=== PATIENT | male | born 1935 | race Caucasian/White ===

== ENCOUNTER → 2016-05-20 | Outpatient (CLI) | payer OTHER ==
--- NOTE | 2016-05-20 12:41 | DX ---
Pelvis single view 1152 hours. History: Fell yesterday with pain left posterior pelvis. Findings: Comparison prior CT study of November 03, 2015. There is mild hip joint space narrowing bilaterally with small marginal osteophytes and mild protrusi o suspected. The SI joints and symphysis are normal. There are no fractures or abnormal lytic or scle rotic osseous lesions. Facet hypertrophy is noted at L4-L5. Patient has had left hemilaminectomy at t he L5 level. Soft tissues are unremarkable. Impression: 1. Mild hip joint space narrowing bilaterally with small osteophytes and mild protrusio probably from underlying mild osteoarthritis. A message was left on voice mail for Dr. Cristina Mills regarding this study.
== END ==
LOC: BMCIMAGING 11:50
PROVIDERS: ATTEND Nurse Practitioner Adult Health
DX: R10.2 Pelvic and perineal pain (principal)

== ENCOUNTER → 2017-09-25 | Outpatient (CLI) | payer OTHER | LOC: BMCIMAGING 14:40 | PROVIDERS: ATTEND Family Medicine | DX: S63.011D Subluxation of distal radioulnar joint of right wrist, subsequent encounter (principal) ==

== ENCOUNTER 2017-11-14 09:27 | Day surgery (SDC) | payer OTHER ==
[2017-11-14] MEDS ORDERED: fentaNYL 100 MCG/2 ML INJ IVP ONE (09:31)
[2017-11-14] MEDS ORDERED: MIDAZOLAM 2 MG/2 ML VIAL IVP ONE (09:31)
[2017-11-14] MEDS ORDERED: NS 500 ML IV ONE (09:31)
[2017-11-14] MEDS ORDERED: BENZOCAINE UNIT DOSE SPRAY HURRICAINE MM ONE (09:31)
--- NOTE | 2017-11-14 10:29 | PDHPUP ---
History & Physical Update H&P update statement: This history and physical update is based on an assessment of the patient which was completed after admission or registration (within 24 hours), but prior to the surgery/procedure. H&P update: H&P reviewed & patient examined, no change in patient's condition since H&P completed (Reviewed Dr. Ruiz's note from the office dated 10/25/2017 )
--- NOTE | 2017-11-14 10:48 | POSTANESTH ---
Post Anesthetic Evaluation Cardiovascular Status: Normal, Stable Respiratory Status: Normal, Stable Level of Consciousness/Mental Status: Can Participate in Eval, Alert and Oriented Pain Control: Adequate, Prn Tx Ordered Nausea/Vomiting Control: Adequate, Prn Tx Ordered Complications Possibly Related to Anesthesia: None Noted
[2017-11-14] MEDS ORDERED: PROPOFOL/EMULSION 500 MG/50 ML BOTTLE IV ONE (10:51)
[2017-11-14] MEDS ORDERED: LIDOCAINE 1% 5 ML SDV ONE (10:51)
--- NOTE | 2017-11-14 10:51 | PDANEPAE ---
ANE History of Present Illness 82 yo male with Afib being evaluated for Watchman placement. ANE Past Medical History - Cardiovascular History Hx Hypertension: No Hx Arrhythmias: Yes Hx Coronary Artery / Peripheral Vascular Disease: No Hx CHF / Valvular Disease: No Cardiovascular History Comment: sss, 2nd degree heart block, hx. pacemaker 2010. denies chest pain. A-fib - Pulmonary History Hx COPD: No Hx Asthma/Reactive Airway Disease: No Hx Recent Upper Respiratory Infection: No Hx Oxygen in Use at Home: No Hx Sleep Apnea: Yes Pulmonary History Comment: wears mouth appliance at night for minor sleep apnea. denies sob up 2 flights - Neurologic History Hx Cerebrovascular Accident: No Hx Seizures: No Hx Dementia: No Neurologic History Comment: tingling to feet, nerve related. l foot drop r/t lumbar impingment. lumbar herniated disc hx. migraines- 2/yr. - Endocrine History Hx Diabetes: No Hypothyroid: No Obesity: no - Renal History Hx Renal Disorders: No Renal History Comment: frequency- takes flomax - Liver History Hx Hepatic Disorders: No - Neurological & Psychiatric Hx Hx Neurological and Psychiatric Disorders: No - Cancer History Hx Cancer: No - Congenital Disorder History Hx Congenital Disorders: No - GI History GERD: moderate Hx Gastrointestinal Disorders: Yes Gastrointestinal History Comment: GERD - on meds - Other Health History Other Health History: fell on ice 04/2013- dislocated little finger. bruises easily. arthritis. - Chronic Pain History Chronic Pain: Yes (arthritis) - Surgical History Prior Surgeries: 03/2013- l knee arthroplasty. spondiolithiasis l4-5. l3-5 discectomy. rotator cuff surgery -l and r. tonsillectomy ANE Review of Systems Review of Systems: - Systems Constitutional: Reports: other (recent fatigue in past few months) ANE Patient History - Allergies Allergies/Adverse Reactions: codeine [Codeine] Allergy (Unknown, Verified 01/03/14 16:11) kidney problems hydrocodone Allergy (Verified 01/03/14 16:11) stroke symptoms oxycodone [Oxycodone] Allergy (Verified 01/03/14 16:11) stroke symptoms - Home Medications Home Medications: Lovastatin 10 mg PO HS 11/07/11 [Last Taken 11/13/17 20:00] [place]-3 Fatty Acids [Fish Oil 1000 mg (*)] 1,000 mg PO BID 11/07/11 [Last Taken 11/14/17 07:00] Diltiazem HCl [Diltiazem 24Hr Cd] 240 mg PO DAILY 02/26/13 [Last Taken 11/14/17 07:00] Dronedarone HCl [Multaq 400 mg (*)] 400 mg PO BIDMEAL 02/26/13 [Last Taken 11/14 07:00] Tamsulosin HCl [Flomax 0.4 MG (*)] 0.8 mg PO DAILY@1830 06/19/13 [Last Taken 07/02 20:00] Apixaban [Eliquis] 5 mg PO BID 11/03/15 [Last Taken 11/14/17 07:00] ISOMETHEPT/ACETAMINOP/DICHLPHN [MIDRIN CAPSULE] 1 each PO DAILY PRN 11/03/15 [ Last Taken 09/13/17 20:00] Naproxen Sodium [Aleve 220 MG (*)] 220 mg PO DAILY PRN 11/03/15 [Last Taken 20:00] Omeprazole 40 mg PO DAILY 11/03/15 [Last Taken 11/13/17 20:00] traMADol [Ultram 50 mg (*)] 50 mg PO DAILY PRN 11/03/15 [Last Taken 09/12/17 20: 00] - Anes Hx Anes Hx: no prior problems - Smoking Hx Smoking Status: Former smoker Marijuana use: No - Alcohol Use Alcohol Use: Occasionally (4/week) - Family Anes Hx Family Anes Hx: neg - N/A Family Hx Anesthesia Complications: none ANE Labs/Vital Signs - Vital Signs Vital Signs: reviewed preoperatively; see RN documention for details Height: 195.6 cm Weight: 88.6 kg ANE Physical Exam - Airway Neck exam: FROM Mallampati Score: Class 2 Mouth exam: normal dental/mouth exam - Pulmonary Pulmonary: clear to auscultation - Cardiovascular Cardiovascular: irregularly irregular - ASA Status ASA Status: III ANE Anesthesia Plan Anesthesia Plan: GA with mask Total IV Anesthesia: Yes
--- NOTE | 2017-11-15 15:46 | ECHO ---
[email or web address] [id number] Main: [phone] Fax: Transesophageal Echocardiography Name: CHUCK GARNICA MR#: [id number] Study Date: 11/14/2017 Study Time: 10:42 AM Date of : 1935 Age: 82 year(s) Height: ( ) Weight: ( ) BSA: Gender: Male Examination: VANDANA Indication: Watchman Image Quality: Contrast: Requested by: Lissa Alejandro Heart Rate: Rhythm: BP: / Procedure Staff Deployment Manager: Carlos Cosme RDCS Reading Physician: Lissa Alejandro MD Requesting Provider: Stiven Ruiz VANDANA Exam Details Conclusions: Normal global systolic LV function. There is a pacemaker lead noted in the right ventricle. No thrombus in left appendage. Mild mitral valve regurgitation is present. There is mild prolapse of the posterior leaflet of the mitral valve. Baseline VANDANA ISAÍAS Measurements. 0 Degrees 0.7mm x 14mm, 45 Degrees .9mm x 14mm, 90 Degrees 12mm x 14mm, 135 Degrees .9mm x 16mm. The patient has an elevated CHADS2 Vasc score of 3 and is a poor candidate for long-term anticoagulation therapy due to frequent nosebleeds and significant bruising. He will be referred for Watchman device evaluation in the [facility]. Measurements: Chambers Valvular Assessment AV/MV Valvular Assessment TV/PV Normal Normal Normal Name Value Range Name Value Range Name Value Range Additional Measurements: Findings: Left Ventricle: Normal global systolic LV function. Right Ventricle: There is a pacemaker lead noted in the right ventricle. Patient: CHUCK GARNICA Study Date: 11/14/2017 Page 1 of 2 10:42 AM Left Atrium: The left atrium is normal in size. Left Atrial Appendage: Good color flow doppler in the left atrial appendage. No thrombus in left appendage. Mitral Valve: Mild mitral valve regurgitation is present. There is mild prolapse of the posterior leaflet of the mitral valve. Aortic Valve: The aortic valve is normal in appearance and function. There is no aortic valve regurgitation. Pulmonic Valve: The pulmonic valve is normal in appearance and function. Aorta: The aorta is normal. Pericardium: No pericardial effusion. Exam Comments: Baseline VANDANA ISAÍAS Measurements. 0 Degrees 0.7mm x 14mm, 45 Degrees .9mm x 14mm, 90 Degrees 12mm x 14mm, 135 Degrees .9mm x 16mm. l1n (No Signature Object) Patient: CHUCK GARNICA Study Date: 11/14/2017 Page 2 of 2 10:42 AM [id number]
== END 2017-11-14 12:45 | disposition home or self-care (01) ==
LOC: FCATH 09:27
PROVIDERS: ATTEND Internal Medicine Cardiovascular Disease
DX: I48.0 Paroxysmal atrial fibrillation (principal)
CPT/HCPCS: J2704

== ENCOUNTER → 2017-11-20 | Outpatient (CLI) | payer OTHER | LOC: BHFA 15:00 | PROVIDERS: ATTEND Internal Medicine Cardiovascular Disease | DX: I48.91 Unspecified atrial fibrillation (principal); E78.5 Hyperlipidemia, unspecified; Z95.0 Presence of cardiac pacemaker ==

== ENCOUNTER 2018-01-18 14:31 | Emergency (ER) | payer OTHER ==
[2018-01-18] MEDS ORDERED: NS 500 ML IV ONE (14:57)
[2018-01-18 15:05] LABS: PLATELET COUNT 197 10^3/uL (150-400)
--- NOTE | 2018-01-18 15:14 | EDPHY ---
H & P Smoking Status: Former smoker Time Seen by Provider: 01/18/18 14:43 HPI/ROS: HPI Trip and fall. 82-year-old male by ambulance with his . This patient came out of coffee bar, misstepped on a curb trying to get into his car, tripped, fell forward striking the left side of his forehead and face. No loss of consciousness. He was taken off Eliquis by his geothermal plant manager about a week ago. He complains of a laceration to the left side of his face. He reports that he had a mechanical fall about a week and a half ago and has some residual left knee pain secondary to this. He denies any neck pain. No loss of sensation or weakness in his extremities. No other complaints. ROS: Constitutional: No fever, no chills. As above. Eyes: No discharge. No changes in vision. ENT: No sore throat. No nasal congestion or rhinorrhea. Respiratory: No cough. No shortness of breath. Cardiac: No chest pain, no palpitations. Gastrointestinal: No abdominal pain, no vomiting, no diarrhea. Genitourinary: No hematuria. No dysuria or increased frequency with urination. Musculoskeletal: No back pain. No neck pain. No myalgias or arthralgias. Skin: No rashes. As above. Neurological: No headache. No focal weakness or altered sensation. Past medical history: Pacemaker, bilateral total knee replacement, back surgeries, shoulder surgeries, atrial fibrillation, GERD, benign prostatic hypertrophy, hyperlipidemia. Left-sided footdrop, he states he thinks this is what causes him to fall as he drags his foot. His geothermal plant manager is Dr. Hao Bradford Social history: No alcohol. Here with his . Nonsmoker. He does not use a walker or cane. Physical Exam: General Appearance: Alert, he is not in distress. This patient is responding to questions appropriately and in full sentences. This patient appears well- hydrated and well-nourished. Head: Normocephalic atraumatic except for a linear 3 cm laceration, just lateral to the left brow ridge. He has a swelling with a subtle hematoma over the left maxilla. Face: Facial bones are stable on palpation. Eyes: Pupils equal and round and reactive to light, no pallor or injection. No lid erythema or edema. ENT, Mouth: Mucous membranes moist. Dentition is intact except for an [place]ete class 1 fracture to the left lower lateral incisor. No malocclusion of the jaw. No tongue lacerations or abrasions. Pharynx is clear. The bilateral nasal canals are clear. No septal hematoma. Respiratory: There are no retractions, lungs are clear to auscultation with good air movement bilaterally. Chest wall is stable to AP and lateral palpation. Cardiovascular: Regular rate and rhythm. No murmur. Gastrointestinal: Abdomen is soft and nontender, no masses, bowel sounds normal. Neurological: Motor sensory function is intact. Cranial nerves are normal. Cerebellar function intact. Skin: Warm and dry, no rashes. Facial laceration left lateral brow ridge as above. He has superficial abrasions about the size of a nickel over both knees anteriorly. Musculoskeletal: Neck is supple and nontender. The trachea is midline. No midline cervical, thoracic, lumbar or sacral tenderness on palpation. No flank tenderness on palpation. Extremities are symmetrical, full range of motion. All joints in the bilateral upper and bilateral lower extremities range without pain or impingement. No tenderness on palpation of the long bones in the bilateral upper and bilateral lower extremities. Psychiatric: No agitation. No depression. Database: EKG: EKG time is 3:41 p.m.; EKG shows a atrial paced rhythm ventricular rate of 70. T -wave inversion noted in lead 3. QT interval borderline prolonged. The OR, QRS , QT intervals are within normal limits. There are no ST-T wave changes indicative of ischemic or injury pattern. No evidence of right heart strain. Interpreted by me. Imaging: CT head without contrast: Negative except for a very small and subtle left posterior inferior wall orbital fracture nondisplaced. Results were discussed with staff radiologist Dr. Kimani Sykes. Procedures: Please see procedure note by physician fundraising assistant Evy Duarte. Emergency department course: Triage vital signs reviewed. He is mildly hypertensive. Vital signs otherwise normal. IV was placed. He was started on IV normal saline with 500 cc to be given over the next hour. EKG obtained and reviewed by myself. He will be sent for CT imaging of his head shortly. He consents to workup. 4:30 p.m., patient re-evaluated, resting comfortably at this time. Repeat neurologic Assessment is nonfocal and unchanged from prior. Results of his CT imaging, blood work and EKG discussed with him and his in detail. At this time he feels comfortable going home. We will get him up and see how he ambulates and feels on his feet. 4:55 p.m., patient re-evaluated. He was up and ambulatory around the emergency department without difficulty. At this time he feels comfortable going home. His feels comfortable taking him home. I have recommended using a cane to him. Wound care was discussed. Head injury precautions and follow-up reviewed. Return to emergency department precautions thoroughly discussed. All of his questions were answered. He was discharged in good condition with his . Differential Diagnosis: The differential diagnosis on this patient includes but is not limited to mechanical fall, facial laceration, dental injury. Cervical spine injury, traumatic brain injury, other significant traumatic injury unlikely. This represents a partial list of diagnoses considered. These considerations are based on history, physical exam, past history, reassessment and diagnostic testing. (Leigh Martinez) Constitutional: Initial Vital Signs Temperature (C) 36.5 C 01/18/18 14:36 Heart Rate 69 01/18/18 14:36 Respiratory Rate 18 01/18/18 14:36 Blood Pressure 146/70 H 01/18/18 14:36 O2 Sat (%) 94 01/18/18 14:36 O2 Delivery Mode Room Air Allergies/Adverse Reactions: codeine [Codeine] Allergy (Unknown, Verified 01/18/18 14:42) kidney problems hydrocodone Allergy (Verified 01/18/18 14:42) stroke symptoms oxycodone [Oxycodone] Allergy (Verified 01/18/18 14:42) stroke symptoms Home Medications: Medication Instructions Recorded Lovastatin 10 mg PO HS 11/07/11 [place]-3 Fatty Acids [Fish Oil 1000 1,000 mg PO BID 11/07/11 mg (*)] Diltiazem HCl [Diltiazem 24Hr Cd] 240 mg PO DAILY 02/26/13 Dronedarone HCl [Multaq 400 mg (*)] 400 mg PO BIDMEAL 02/26/13 Tamsulosin HCl [Flomax 0.4 MG (*)] 0.8 mg PO DAILY@1830 06/19/13 Apixaban [Eliquis] 5 mg PO BID 11/03/15 ISOMETHEPT/ACETAMINOP/DICHLPHN 1 each PO DAILY PRN 11/03/15 [MIDRIN CAPSULE] Naproxen Sodium [Aleve 220 MG (*)] 220 mg PO DAILY PRN 11/03/15 Omeprazole 40 mg PO DAILY 11/03/15 traMADol [Ultram 50 mg (*)] 50 mg PO DAILY PRN 11/03/15 Cholecalciferol Vit D3 [Vitamin D3 1,000 units PO DAILY #0 tab 11/04/15 (*)] Ibuprofen [Motrin (*)] 400 mg PO Q6 #0 tab 11/04/15 Medical Decision Making - Diagnostics Imaging Results: Imaging Impressions Head CT 01/18/18 14:58 Impression: 1. Stable moderate age-related atrophy. 2. No hemorrhage, mass effect, or definite acute peripheral infarct. 3. Stable mild nonspecific hypodensities in the white matter of bilateral cerebral hemispheres. Differential diagnosis includes microvascular ischemic disease, post-infectious/post-inflammatory sequela, atypical demyelinating disease, or migraine-related sequela. Small white matter lacunar infarcts may also have this appearance. 4. Nondisplaced minimal focal fracture inferior orbital wall on the left posterior laterally. If symptoms worsen, additional imaging may be necessary. Findings discussed with Leigh Martinez MD at 15:40 hour, 01/18/2018. Procedures: I was asked by Dr. Leigh Martinez to repair facial laceration. Laceration repair. Verbal consent was obtained from the patient. The 3 cm laceration on the left eyebrow was anesthetized using 1% lidocaine with epinephrine. The wound was irrigated with saline, draped and explored to its base with a gloved finger. There were no deep structures involved. The wound was repaired with 6 0 Prolene , 6 sutures. The wound repair was complex. The procedure was performed by myself. (Evy Mccloud) - Data Points Laboratory Results: Laboratory Results 01/18/18 14:40 01/18/18 14:40 01/18/18 01/18/18 01/18/18 14:40 14:40 14:40 WBC 6.86 10^3/uL 10^3/uL (3.80-9.50) RBC 3.71 10^6/uL L 10^6/uL (4.40-6.38) Hgb 12.3 g/dL L g/dL (13.7-17.5) Hct 37.8 % L % (40.0-51.0) MCV 101.9 fL H fL (81.5-99.8) MCH 33.2 pg pg (27.9-34.1) MCHC 32.5 g/dL g/dL (32.4-36.7) RDW 13.4 % % (11.5-15.2) Plt Count 197 10^3/uL 10^3/uL (150-400) MPV 9.5 fL fL (8.7-11.7) Neut % (Auto) 67.1 % % (39.3-74.2) Lymph % (Auto) 20.4 % % (15.0-45.0) Dane % (Auto) 8.9 % % (4.5-13.0) Eos % (Auto) 2.6 % % (0.6-7.6) Baso % (Auto) 0.4 % % (0.3-1.7) Nucleat RBC Rel Count 0.0 % % (0.0-0.2) Absolute Neuts (auto) 4.60 10^3/uL 10^3/uL (1.70-6.50) Absolute Lymphs (auto) 1.40 10^3/uL 10^3/uL (1.00-3.00) Absolute Monos (auto) 0.61 10^3/uL 10^3/uL (0.30-0.80) Absolute Eos (auto) 0.18 10^3/uL 10^3/uL (0.03-0.40) Absolute Basos (auto) 0.03 10^3/uL 10^3/uL (0.02-0.10) Absolute Nucleated RBC 0.00 10^3/uL 10^3/uL (0-0.01) Immature Gran % 0.6 % % (0.0-1.1) Immature Gran # 0.04 10^3/uL 10^3/uL (0.00-0.10) PT 13.0 SEC SEC (12.0-15.0) INR 0.96 (0.83-1.16) APTT 26.9 SEC SEC (23.0-38.0) Sodium 138 mEq/L mEq/L (135-145) Potassium 4.9 mEq/L mEq/L (3.3-5.0) Chloride 105 mEq/L mEq/L (97-110) Carbon Dioxide 25 mEq/l mEq/l (22-31) Anion Gap 8 mEq/L mEq/L (8-16) BUN 24 mg/dL H mg/dL (7-23) Creatinine 1.5 mg/dL H mg/dL (0.7-1.3) Estimated GFR 45 Glucose 99 mg/dL mg/dL (70-100) Calcium 8.9 mg/dL mg/dL (8.5-10.4) Medications Given: Discontinued Medications Sodium Chloride (Ns) 500 mls @ 0 mls/hr IV ONCE ONE; Wide Open PRN Reason: Protocol Stop: 01/18/18 14:58 Last Admin: 01/18/18 15:26 Dose: 500 mls Departure - Departure Disposition: [facility] Inpatient Acute Clinical Impression: Mechanical fall, Facial laceration, Chipped tooth Condition: Good Instructions: Acute Dental Trauma (ED), Facial Laceration (ED), Head Injury (ED ) Additional Instructions: Read and follow provided instructions. Sutures are to be removed in 5-7 days. This can be done here out in our triage area or by her primary care physician. Follow-up with your primary care physician in 2-3 days for re-evaluation. You should also follow up with your dentist as discussed for evaluation of your chipped tooth. Consider using a cane when up and walking to assist you. Take your medication as prescribed. Return to the emergency department for lightheadedness, worsening headache, confusion, nausea and vomiting or other serious concerns. Referrals: Patient,NotPresent [Unknown] - As per Instructions
[2018-01-18 15:15] LABS: INR 0.96 (0.83-1.16)
[2018-01-18 16:40] VITALS: BP 158/85
--- NOTE | 2018-01-18 21:14 | CPEKG ---
Test Reason : OPEN Blood Pressure : / mmHG Vent. Rate : 070 BPM Atrial Rate : 070 BPM P-R Int : 221 ms QRS Dur : 099 ms QT Int : 448 ms P-R-T Axes : 033 -10 -20 degrees QTc Int : 484 ms Atrial-paced rhythm Borderline T abnormalities, inferior leads Borderline prolonged QT interval Confirmed by Leigh Martinez ([id number] on 01/18/2018 9:13:37 PM Referred By: Confirmed By:Leigh Martinez
== END 2018-01-18 17:18 | disposition home or self-care (01) ==
LOC: EDUNIT#
PROC: 0HQ1XZZ Repair Face Skin, External Approach (ICD-10-PCS; principal; 2018-01-18)
DX: S01.81XA Laceration without foreign body of other part of head, initial encounter (principal); S02.32XA Fracture of orbital floor, left side, initial encounter for closed fracture; S02.5XXA Fracture of tooth (traumatic), initial encounter for closed fracture; E86.9 Volume depletion, unspecified; W01.0XXA Fall on same level from slipping, tripping and stumbling without subsequent striking against object, initial encounter; Y92.810 Car as the place of occurrence of the external cause; Y93.01 Activity, walking, marching and hiking; Y99.8 Other external cause status

== ENCOUNTER 2018-01-24 13:47 | Inpatient (IN) | payer OTHER ==
--- NOTE | 2018-01-24 14:46 | EDPHY ---
H & P Time Seen by Provider: 01/24/18 14:21 HPI/ROS: Chief complaint. Right leg gives out HPI. Patient is an 82-year-old male presents emergency department with 3 day history of intermittent right leg weakness and 1 bear weight. The right leg intermittently loses control and gives out. Today was walking from the car to the dentist office and his leg buckled. He can move and lift his leg and in between times he has no symptoms. Symptoms have been present for 3 days. He can sit down in a chair and in tender 15 min get up and walk without problem. He has no right arm symptoms. No left leg symptoms though he does have chronic left footdrop. He was seen 6 days ago after a fall and had inferior orbital fracture on head CT but no intracranial bleeding. He had been on Eliquis but is been off blood thinners for about 1 and half weeks. He does have some soreness in his right hip. He does not have low back pain. He has some upper neck pain that is chronic and has had no change in his symptoms. He has had some headache after fall. The patient is concerned about falling. ROS Constitutional. no fever/chills, no weakness Eyes. no problems with vision ENT. no sore throat, no nasal drainage Cardiovascular. no chest pain Respiratory. no shortness of breath, no cough Abdominal. no abdominal pain, no nausea/vomiting, no diarrhea . no problems urinating MS. Left leg cheryle and gives out; chronic left-sided neck pain Skin. no rash Lymph. no swollen glands Neuro. Headache and recent head injury Past Medical/Surgical History: Past medical history significant pacemaker, bilateral total knee replacements, back surgeries, eye surgery, atrial fibrillation, dyslipidemia, GERD Social History: , nonsmoker, no alcohol Smoking Status: Former smoker Physical Exam: General Appearance: Alert well-developed male mild distress vital signs are stable Eyes: Pupils equal and round no pallor or injection. ENT, Mouth: Mucous membranes are moist. Respiratory: There are no retractions, lungs are clear to auscultation. Cardiovascular: Regular rate and rhythm. Gastrointestinal: Abdomen is soft and nontender, no masses, bowel sounds normal. Neurological: Awake and alert, sensory and motor exams grossly normal. Cranial nerves are normal speech is normal. Examination of arms and legs is normal with good range of motion and sensation Skin: Warm and dry, no rashes. Bruising left cheek secondary to fall 6 days ago Musculoskeletal: Neck is supple nontender. Extremities symmetrical, full range of motion. Psychiatric: Patient is oriented X 3, there is no agitation. Constitutional: Initial Vital Signs Temperature (C) 36.4 C 01/24/18 13:53 Heart Rate 73 01/24/18 13:53 Respiratory Rate 16 01/24/18 13:53 Blood Pressure 102/57 L 01/24/18 13:53 O2 Sat (%) 95 01/24/18 13:53 Allergies/Adverse Reactions: codeine [Codeine] Allergy (Unknown, Verified 01/18/18 14:42) kidney problems hydrocodone Allergy (Verified 01/18/18 14:42) stroke symptoms oxycodone [Oxycodone] Allergy (Verified 01/18/18 14:42) stroke symptoms Home Medications: Medication Instructions Recorded Lovastatin 10 mg PO HS 11/07/11 [place]-3 Fatty Acids [Fish Oil 1000 1,000 mg PO BID 11/07/11 mg (*)] Diltiazem HCl [Diltiazem 24Hr Cd] 240 mg PO DAILY 02/26/13 Dronedarone HCl [Multaq 400 mg (*)] 400 mg PO BIDMEAL 02/26/13 Tamsulosin HCl [Flomax 0.4 MG (*)] 0.8 mg PO DAILY@1830 06/19/13 Apixaban [Eliquis] 5 mg PO BID 11/03/15 ISOMETHEPT/ACETAMINOP/DICHLPHN 1 each PO DAILY PRN 11/03/15 [MIDRIN CAPSULE] Naproxen Sodium [Aleve 220 MG (*)] 220 mg PO DAILY PRN 11/03/15 Omeprazole 40 mg PO DAILY 11/03/15 traMADol [Ultram 50 mg (*)] 50 mg PO DAILY PRN 11/03/15 Cholecalciferol Vit D3 [Vitamin D3 1,000 units PO DAILY #0 tab 11/04/15 (*)] Ibuprofen [Motrin (*)] 400 mg PO Q6 #0 tab 11/04/15 Medical Decision Making - Diagnostics EKG Interpretation: EKG interpreted by me shows an atrial paced rhythm. Normal interval. Left axis deviation with left anterior fascicular block. QRS otherwise normal. There is some T-wave inversion in inferior leads. Rate is 65. EKG not changed from 01/18/2018 Imaging Results: Imaging Impressions Head CT 01/24/18 14:47 Impression: A left subdural effusion is associated with 6.5 mm of [id number]-zk-[id number] shift. The study is otherwise stable without evidence for hemorrhage. Results called to Dr. Jose Carlos Sprague at 3:42 PM. General information for patients regarding this examination can be found at [email or web address]. If you have questions or comments about this report, please contact me at [phone] (hospital) or [phone] (cell). Hip X-Ray 01/24/18 14:47 Impression: Nothing acute or subacute identified. X-ray right hip interpreted by me is normal Noncontrast head CT shows a left subdural effusion previously 2 mm in size now 6.5 mm in size with midline shift Procedures: IV normal saline ED Course/Re-evaluation: Re-evaluated by me at 3:50 p.m. And patient is conversational and neurologically intact Patient and his and I discussed imaging study results, treatment plan including recommendation for admission. They expressed understanding and agreement I consulted and discussed the case with Dr. Supa cabello, hospitalist who agrees to the admission I consulted discussed the case with Dr. Reza for Neurosurgery who also agrees with admission will see the patient in consultation. He is fine with the patient being admitted to a medical surgery bed. Differential Diagnosis: Recent head trauma and recently discontinued on blood thinners. Repeat head CT now shows an enlarging subdural effusion with midline shift. I suspect that this explains the patient's intermittent leg weakness and it giving out. I considered hip fracture injury as well. Patient does not have any low back pain. He is currently neurologically intact - Data Points Laboratory Results: Laboratory Results 01/24/18 15:13 01/24/18 01/24/18 15:13 15:13 WBC 5.75 10^3/uL 10^3/uL (3.80-9.50) RBC 3.84 10^6/uL L 10^6/uL (4.40-6.38) Hgb 12.7 g/dL L g/dL (13.7-17.5) Hct 38.9 % L % (40.0-51.0) MCV 101.3 fL H fL (81.5-99.8) MCH 33.1 pg pg (27.9-34.1) MCHC 32.6 g/dL g/dL (32.4-36.7) RDW 13.1 % % (11.5-15.2) Plt Count 186 10^3/uL 10^3/uL (150-400) MPV 9.3 fL fL (8.7-11.7) Neut % (Auto) 69.4 % % (39.3-74.2) Lymph % (Auto) 18.1 % % (15.0-45.0) Gordon % (Auto) 9.4 % % (4.5-13.0) Eos % (Auto) 2.1 % % (0.6-7.6) Baso % (Auto) 0.5 % % (0.3-1.7) Nucleat RBC Rel Count 0.0 % % (0.0-0.2) Absolute Neuts (auto) 3.99 10^3/uL 10^3/uL (1.70-6.50) Absolute Lymphs (auto) 1.04 10^3/uL 10^3/uL (1.00-3.00) Absolute Monos (auto) 0.54 10^3/uL 10^3/uL (0.30-0.80) Absolute Eos (auto) 0.12 10^3/uL 10^3/uL (0.03-0.40) Absolute Basos (auto) 0.03 10^3/uL 10^3/uL (0.02-0.10) Absolute Nucleated RBC 0.00 10^3/uL 10^3/uL (0-0.01) Immature Gran % 0.5 % % (0.0-1.1) Immature Gran # 0.03 10^3/uL 10^3/uL (0.00-0.10) Sodium Pending Potassium Pending Chloride Pending Carbon Dioxide Pending Anion Gap Pending BUN Pending Creatinine Pending Estimated GFR Pending Glucose Pending Calcium Pending Departure - Departure Disposition: [facility] Inpatient Acute Clinical Impression: Subdural effusion Condition: Fair Referrals: Roland Jett MD [Primary Care Provider] - As per Instructions
--- NOTE | 2018-01-24 15:25 | CPEKG ---
Test Reason : OPEN Blood Pressure : / mmHG Vent. Rate : 065 BPM Atrial Rate : 065 BPM P-R Int : 168 ms QRS Dur : 095 ms QT Int : 460 ms P-R-T Axes : 017 -41 -16 degrees QTc Int : 479 ms Atrial-paced rhythm Left anterior fascicular block Borderline T abnormalities, inferior leads Borderline prolonged QT interval Confirmed by Jose Carlos Sprague ([id number]) on 01/24/2018 3:25:22 PM Referred By: Confirmed By:Jose Carlos Sprague
[2018-01-24 15:27] LABS: PLATELET COUNT 186 10^3/uL (150-400)
[2018-01-24 16:18] LABS: INR 1.02 (0.83-1.16); PROTIME(PATIENT) 13.6 SEC (12.0-15.0)
--- NOTE | 2018-01-24 17:07 | GCON ---
NEUROSURGICAL CONSULTATION CHIEF COMPLAINT: Right leg weakness. HISTORY OF PRESENT ILLNESS: The patient is an 82-year-old male with a past medical history significa nt for atrial fibrillation with a pacemaker for which he was on Eliquis. He had a fall approximately 6 days ago with a positive loss of consciousness. He was found to have an inferior orbital fracture , and a head CT was read as negative. His Eliquis was stopped, and he noticed for the past 3 days th at his right leg has been giving out on him. He has difficulty walking when he loses control of his right leg. He has had a headache since his fall approximately 6 days ago. He has not had any nausea or vomiting. He denies any new paresthesias. He does have a history of chronic back pain and had s urgery on his back years ago. He has a history of left dorsiflexor weakness from that surgery. PAST MEDICAL HISTORY: 1. Pacemaker. 2. Atrial fibrillation. 3. Hyperlipidemia. 4. GERD. PAST SURGICAL HISTORY: 1. Bilateral total knee replacements. 2. Previous back surgery. MEDICATIONS PRIOR TO ADMISSION: Midrin capsule, naproxen, omeprazole, Ultram, vitamin D3, and Motrin . The patient was on Eliquis, but this has currently been stopped. ALLERGIES: Codeine, hydrocodone, and oxycodone, which cause kidney problems and stroke symptoms. FAMILY HISTORY: The patient has no family history of intracranial hemorrhages. SOCIAL HISTORY: The patient is with grown children. He is a former smoker and denies recrea tional drug use. He does drink alcohol occasionally. REVIEW OF SYSTEMS: Negative. PHYSICAL EXAM: GENERAL: The patient is an 82-year-old male lying in bed, in no apparent distress. HEAD, EYES, EARS, NOSE, AND THROAT: Negative to drainage. He does have a laceration that was repair ed approximately 1 week ago lateral to his left eye. NEUROLOGICAL EXAM: The patient is awake, alert, and oriented x4. Pupils are equal, round, and react ted to light. Extraocular motions are intact. There is no evidence of facial droop. Tongue and uvu la are midline. Spinal access muscles are intact. His motor strength is 5/5 in his arms and legs wi th the exception of his left dorsiflexors, which are 4+/5. His sensation is grossly intact to light touch in his arms and legs. Deep tendon reflexes are 1+ out of 4 in bilateral biceps, triceps, brach ioradialis, patellar, and Achilles. There is a negative Celso with no clonus. DIAGNOSTIC STUDIES: A head CT without contrast from [facility] on 01/24/2018, shows diffuse cerebral atrophy. There is a left-sided subdural hygroma extending along the majority of the convexity that measures approximately 9 mm and produces approximately 6.5 mm of trwj-wu-aokrr shift. The patient did have a head CT on 01/18/2018, that showed diffuse cerebral atrophy and a small left -sided subdural hygroma. There was possibly a trace amount of extra-axial blood in the left anterior middle fossa. There was no evidence of hydrocephalus. This questionable amount of blood is very sm all and difficult to visualize, and seen mostly in retrospect. IMPRESSION: This is an 82-year-old male with a several-day history of right leg giving out that may be related to his left-sided subdural hygroma. He is neurologically stable. PLAN: All the above were discussed in detail with the patient. This patient was seen and examined w chely Luna present in the emergency department, room #5, at 4:40 p.m. In light of his jeanie rly rapid enlargement of the subdural hygroma over the last several days, we suggest that he be admit mamie to the hospital for observation. We will have him work with Physical Therapy and Occupational Th erapy. We would recommend a repeat head CT without contrast on the morning of 01/26/2018. I f his subdural hygroma stays the same and he clinically improves, then we can follow him on a conserv ative basis. If the subdural hygroma enlarges or he has any worsening symptoms, then he may require drainage of this left-sided subdural hygroma. At this point in time, he does not require any antiepi leptic medications. Admission to the floor is fine with q.4 h. neuro checks. Please call with any n eurological changes. /[id number]/MODL
[2018-01-24] MEDS ORDERED: oxyCODONE IR 5 MG TAB PO PRN (19:01)
[2018-01-24] MEDS ORDERED: ONDANSETRON DISINTEGRATING 4 MG TAB PO PRN (19:01)
[2018-01-24] MEDS ORDERED: PROMETHAZINE HCL 25 MG/ML INJ IVP PRN (19:01)
[2018-01-24] MEDS ORDERED: HYDROCODONE/APAP 5/325 TAB PO PRN (19:01)
[2018-01-24] MEDS ORDERED: ONDANSETRON 4 MG/2 ML VIAL IVP PRN (19:01)
[2018-01-24] MEDS ORDERED: ACETAMINOPHEN 325 MG TAB PO PRN (19:01)
[2018-01-24] MEDS ORDERED: ISOMETHEPT PO PRN (19:04)
[2018-01-24] MEDS ORDERED: DICHLPHN PO PRN (19:04)
[2018-01-24] MEDS ORDERED: ACETAMINOP PO PRN (19:04)
--- NOTE | 2018-01-24 19:42 | GHP ---
DATE OF ADMISSION: 01/24/2018 CHIEF COMPLAINT: Difficulty walking. HISTORY: This is an 82-year-old man with a fairly limited past medical history other than paroxysmal AFib, history of permanent pacemaker, and a fall approximately 6 days ago, at which time he hit his head and suffered an orbital rim fracture. At that time, patient had recently been discontinued on b lood thinners and head CT was performed which was remarkable only for a small subdural effusion. The patient went home and per his , she notes that for several days he was very somnolent and slept much of the day. More recently, he has been more alert and interactive, but has had issues where int ermittently he will be walking and his right leg will just buckle on him without any warning and he w ill be unable to bear weight. He notes this has been happening for the last several days intermitten tly throughout the day. In between episodes, he will be able to walk fine. He denies any numbness o r weakness elsewhere. He denies any changes in his vision or hearing. He denies any confusion. He continues to remain off Eliquis which he has been off for about the last 10 days. He has had some mi ld headaches, but nothing severe. PAST MEDICAL HISTORY: Includes: 1. Nonobstructive coronary artery disease. 2. Paroxysmal AFib. 3. Hyperlipidemia. 4. BPH. 5. GERD. PAST SURGICAL HISTORY: Includes: 1. Bilateral rotator cuff repairs. 2. Bilateral total knees. 3. Back surgery. 4. Permanent pacemaker. 5. Eye surgery. FAMILY HISTORY: Parents are . 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 He is . He is a nonsmoker, nondri nker, nondrug user. REVIEW OF SYSTEMS: 10-point review of systems obtained and negative except as per HPI. HOME MEDICATIONS: Include: 1. Tamsulosin. 2. Omeprazole. 3. [place]-3 fatty acids. 4. Naproxen. 5. Lovastatin. 6. Midrin. 7. Dronedarone. ALLERGIES: Include codeine, hydrocodone, oxycodone. PHYSICAL EXAM: VITAL SIGNS: BP 150/75, heart rate 63, respiratory rate 19, O2 sats 96% on room air, temperature is 36.7. GENERAL APPEARANCE: Well-developed, well-nourished, elderly man. He is awake and alert. He is in no acute distress. EYES: Anicteric. There are sutures and bruising around th e left eye. HENT: Oropharynx clear. CARDIOVASCULAR: Regular rate and rhythm. No MRG. PULMONARY: CTA bilaterally. Normal work of breathing. ABDOMEN: Soft, nontender, nondistended. EXTREMITIES: No clubbing, cyanosis, or edema. SKIN: Warm, dry, well perfused. NEURO/PSYCH: Oriented, appropr iate, pleasant. CLINICAL DATA: Head CT, personally reviewed and interpreted, shows an increased subdural effusion co mpared to CT from 1 week ago subdural effusion. Now it is associated with 6.5 mm of lpqb-ry-duthr sh ift. There is no evidence of hemorrhage. EKG, personally reviewed and interpreted, shows A-paced rhythm. There is left anterior fascicular bl ock. ASSESSMENT/PLAN: This is an 82-year-old man status post a fall 6 days ago, presenting with an increa sed subdural effusion consistent with a subdural hygroma per Neurosurgery. 1. Subdural hygroma. Given the increase in size and now mild shift, the plan is to monitor patient for probably 1-2 days in the ICU. A repeat CT scan will be obtained in [address]sens or patient has any worsening symptoms, he may require drainage of this hygroma, but at this time plan is for monitoring. 2. Right leg instability. Unclear if this is completely related to problem above. His symptoms are intermittent and in between he seems to have full strength. PT/OT will be involved and again monito ring as per above. 3. Paroxysmal atrial fibrillation. Currently appears to be in an A-paced rhythm. He is off anticoa gulation. We will continue his diltiazem and Multaq but continue to hold Eliquis. 4. Hypertension. The patient's blood pressure has been somewhat labile since arrival, as low as 102 to as high as 155 systolic. We will continue to monitor. 5. BPH. Will continue Flomax. 6. Hyperlipidemia. We will continue lovastatin. 7. Inpatient status. The patient will require greater than 48-hour stay for evaluation and manageme nt of above. 8. Patient is new to my care. Old records reviewed, summarized as per HPI and past medical history. Care plan reviewed with Dr. Luna, as well as Dr. Sprague in the emergency department. Greater than 35 minutes of critical care time were spent in care of this patient, including evaluatio n of imaging and discussion of plans with specialists and the patient and his . /[id number]/MODL
[2018-01-24] MEDS: DRONEDARONE HCL 400 MG TAB PO SCH (21:07)
[2018-01-24] MEDS: OMEGA-3 FATTY ACIDS 1,000 MG CAP PO SCH (21:07)
[2018-01-24] MEDS: PRAVASTATIN SODIUM 10 MG TAB PO SCH (21:10)
[2018-01-25 05:19] LABS: PLATELET COUNT 174 10^3/uL (150-400)
--- NOTE | 2018-01-25 08:48 | SOAPPROG ---
SOAP Progress Note Assessment/Plan: Assessment: 82 yo M with right leg weakness and left subdural hygroma Plan: stable PT/OT q4 hour neuro checks plan for repeat ct in am patient does not need keppra please call with neuro changes discussed with DR Kimbrough 01/25/18 08:46 Subjective: mild headache, no N/V. Leg feels a bit better Objective: Vital Signs Temp Pulse Resp BP Pulse Ox 36.5 C 62 15 106/78 95 01/25/18 07:34 01/25/18 07:34 01/25/18 07:34 01/25/18 07:34 01/25/18 07:34 Laboratory Results 01/25/18 05:07 01/25/18 05:07 01/24/18 01/25/18 01/26/18 05:59 05:59 05:59 Intake Total 500 Output Total 1050 300 Balance -550 -300 PT 13.6 SEC (12.0-15.0) 01/24/18 15:22 INR 1.02 (0.83-1.16) 01/24/18 15:22 AAOX4, +FC PERRL, EOMI, no facial droop TARA x 4 + light touch ICD10 Worksheet Patient Problems: Problems Problem Status Onset Subdural effusion Acute CAD - Coronary arteriosclerosis Active Sick sinus syndrome Active Knee contusion Acute Sternal fracture Acute
[2018-01-25] MEDS: CHOLECALCIFEROL VIT D3 1,000 UNITS TAB PO SCH (09:52)
[2018-01-25] MEDS: PANTOPRAZOLE SODIUM 40 MG TAB PO SCH (09:52)
[2018-01-25] MEDS: OMEGA-3 FATTY ACIDS 1,000 MG CAP PO SCH ×2 (09:52→18:35)
[2018-01-25] MEDS: DRONEDARONE HCL 400 MG TAB PO SCH ×2 (09:52→18:35)
[2018-01-25] MEDS: DILTIAZEM XR 240 MG CAP PO SCH (09:58)
--- NOTE | 2018-01-25 11:40 | ASMTCASEMG ---
Living Arrangements What is your living Answers: With Spouse arrangement? Who do you live with? Type Of Residence What kind of residence do Answers: House you live in? Discharge Plan Comments Coordination Status Comments Notes: Patient is an 82yo male with a hx of permanent pacemaker and a fall approximately 6 days ago at which time he hit his head and suffered an orbitol rim fracture. Patient has been admitted for subdural hygroma, right leg instability, paroxysmal atrial fibrillation, hypertension, hyperlipidemia. OT/PT/DOCUMENTATION BILLING CLERK ordered. Patient's states he has worked with [facility] off and on in the past. D/C plan TBD. CM will follow. Date Signed: 01/25/2018 11:32 AM Electronically Signed By:Anh Chairez LCSW
--- NOTE | 2018-01-25 12:15 | PDMN ---
Medical Necessity Medical necessity: Pt meets IP criteria per MD; est los >2 mn for eval/tx of subdural hygroma w/increase in size, midline shift & R leg instability; requiring close ICU monitoring, Neuro consult, repeat CT scan & therapies; comorbid advanced age, AFIB, HTN, CAD; per H&P & order 01/24/18
--- NOTE | 2018-01-25 12:50 | HOSPPROG ---
Hospitalist Progress Note Assessment/Plan: 82yo M with atrial fibrillation recently taken off of apixaban due to falls, chronic left foot drop, recent fall on 01/18 who presented 01/24 with right leg instability found to have left subdural hygroma. Admitted for neurologic monitoring. This is my first encounter with patient. I have reviewed head imaging. #Left subdural hygroma: New since head CT 01/18. Neurologically intact. Suspect precipitated by fall. - q4h neuro checks - PT/OT - Repeat non-con head CT tomorrow AM #Recent fall with LOC: Unclear if mechanical fall or true syncopal episode as patient is amnestic to surrounding events. - Interrogate pacemaker #Atrial fibrillation: A-paced rhythm. He has been off anticoagulation (apixaban ) due to recent falls. - Hold apixaban - Continue diltiazem and dronedarone - RN alerted his steam cleaner, Dr Bradford, of admission. He is reportedly considering ISAÍAS closure in setting given the patient's high risk of long-term systemic anticoagulation #HTN: Relatively controlled. Continue home meds #HLD: Home statin. #BPH: Home flomax. Diet: regular VTE ppx: SCDs Code: full Dispo: Remain inpatient for serial monitoring of neurologic status at least through tomorrow, 01/26. Will discuss with neurosurgery if safe to transfer to med/surg unit. Subjective: Doing well this AM. Had mild headache earlier but not now. Right leg hasn't given out since being in hospital. Objective: Vital Signs Temp Pulse Resp BP Pulse Ox 36.5 C 62 14 118/91 H 94 01/25/18 07:34 01/25/18 10:00 01/25/18 10:00 01/25/18 10:00 01/25/18 10:00 Laboratory Results 01/25/18 05:07 01/25/18 05:07 01/24/18 01/25/18 01/26/18 05:59 05:59 05:59 Intake Total 500 Output Total 1050 300 Balance -550 -300 PT 13.6 SEC (12.0-15.0) 01/24/18 15:22 INR 1.02 (0.83-1.16) 01/24/18 15:22 - Physical Exam Constitutional: no apparent distress, appears nourished, not in pain Eyes: PERRL, anicteric sclera, EOMI Ears, Nose, Mouth, Throat: moist mucous membranes, hearing normal, ears appear normal, no oral mucosal ulcers Cardiovascular: regular rate and rhythym, no murmur, rub, or gallop, No JVD, No edema Respiratory: no respiratory distress, no rales or rhonchi, clear to auscultation Gastrointestinal: normoactive bowel sounds, soft, non-tender abdomen, no palpable masses Skin: no rashes or abrasions, no fluctuance, no induration Neurologic: AAOx3, sensation intact bilaterally, CN II-XII Intact, No weakness, No numbness Psychiatric: interacting appropriately, not anxious, not encephalopathic, thought process linear ICD10 Worksheet Patient Problems: Problems Problem Status Onset Subdural effusion Acute CAD - Coronary arteriosclerosis Active Sick sinus syndrome Active Knee contusion Acute Sternal fracture Acute
[2018-01-25] MEDS: PRAVASTATIN SODIUM 10 MG TAB PO SCH (18:35)
[2018-01-25] MEDS: TAMSULOSIN HCL 0.4 MG CAP PO SCH (18:35)
[2018-01-26] MEDS: DILTIAZEM XR 240 MG CAP PO SCH (08:19)
[2018-01-26] MEDS: OMEGA-3 FATTY ACIDS 1,000 MG CAP PO SCH ×2 (08:19→17:44)
[2018-01-26] MEDS: CHOLECALCIFEROL VIT D3 1,000 UNITS TAB PO SCH (08:20)
[2018-01-26] MEDS: PANTOPRAZOLE SODIUM 40 MG TAB PO SCH (08:20)
[2018-01-26] MEDS: DRONEDARONE HCL 400 MG TAB PO SCH ×2 (08:21→17:44)
--- NOTE | 2018-01-26 09:19 | SOAPPROG ---
SOAP Progress Note Assessment/Plan: Assessment: 82 yo male who takes Eliquis. Fell down and developed right leg weakness intermittently. CTH shows left sided subdural hygroma which is stable on repeat CTH from this AM. He is ambulating well in the hallway Plan: CPM in ICU follow right leg weakness Discussed with Dr. Zavaleta 01/26/18 09:16 Subjective: walking hallway with walker and standby assist from PT Has mild RODRIGUEZ, better than yesterday overall Had right leg weakness yesterday after he had slept with his head forward. Objective: Vital Signs Temp Pulse Resp BP Pulse Ox 36.2 C 73 16 97/55 L 97 01/26/18 00:00 01/26/18 08:19 01/26/18 05:04 01/26/18 08:19 01/26/18 05:04 Laboratory Results 01/25/18 05:07 01/25/18 05:07 01/25/18 01/26/18 01/27/18 05:59 05:59 05:59 Intake Total 500 800 Output Total 1050 750 Balance -550 50 PT 13.6 SEC (12.0-15.0) 01/24/18 15:22 INR 1.02 (0.83-1.16) 01/24/18 15:22 Neuro: A+oX4 speech clear ambulating hallways easily CTH this AM shows stable left subdural hygroma ICD10 Worksheet Patient Problems: Problems Problem Status Onset Subdural effusion Acute CAD - Coronary arteriosclerosis Active Sick sinus syndrome Active Knee contusion Acute Sternal fracture Acute
--- NOTE | 2018-01-26 11:47 | ASMTCMCOM ---
CM Note CM Note Notes: Spoke with physical therapy and they would like home health to do a safety assessment of patient's home before transferring to an outpatient PT program. Left a message for [facility]. CM will follow. Date Signed: 01/26/2018 11:37 AM Electronically Signed By:Anh Chairez LCSW
--- NOTE | 2018-01-26 11:52 | HOSPPROG ---
Hospitalist Progress Note Assessment/Plan: 82yo M with atrial fibrillation recently taken off of apixaban due to falls, chronic left foot drop, recent fall on 01/18 who presented 01/24 with right leg instability found to have left subdural hygroma. Admitted for neurologic monitoring. This is my first encounter with patient. I have reviewed head imaging. #Left subdural hygroma: Stable on CT this AM. Neurologically intact. Suspect precipitated by fall. - PT/OT cleared for home #Recent fall with LOC: Likely mechanical in setting of chronic left foot drop, and right leg giving out. - Pacemaker interrogated - no arrhythmias #Atrial fibrillation: A-paced rhythm. He has been off anticoagulation (apixaban ) due to recent falls. - Hold apixaban - Continue diltiazem and dronedarone - RN alerted his oral pathologist, Dr Bradford, of admission. He is reportedly considering ISAÍAS closure in setting given the patient's high risk of long-term systemic anticoagulation #HTN: Relatively controlled. Continue home meds #HLD: Home statin. #BPH: Home flomax. Diet: regular VTE ppx: SCDs Code: full Dispo: Discharge pending discussion with neurosurgery whether he is safe to return home or whether additional monitoring/imaging is needed. Subjective: Doing well this morning. Had a couple episodes of right leg buckling yesterday but did well with therapy. Walking halls. Mild headache this morning but that's common for him. Objective: Vital Signs Temp Pulse Resp BP Pulse Ox 36.2 C 73 16 97/55 L 97 01/26/18 00:00 01/26/18 08:19 01/26/18 05:04 01/26/18 08:19 01/26/18 05:04 Laboratory Results 01/25/18 05:07 01/25/18 05:07 01/25/18 01/26/18 01/27/18 05:59 05:59 05:59 Intake Total 500 800 Output Total 1050 750 Balance -550 50 PT 13.6 SEC (12.0-15.0) 01/24/18 15:22 INR 1.02 (0.83-1.16) 01/24/18 15:22 - Physical Exam Constitutional: no apparent distress, appears nourished, not in pain Ears, Nose, Mouth, Throat: moist mucous membranes, hearing normal, ears appear normal, no oral mucosal ulcers Cardiovascular: regular rate and rhythym, no murmur, rub, or gallop Respiratory: no respiratory distress Gastrointestinal: normoactive bowel sounds, soft, non-tender abdomen, no palpable masses Skin: no rashes or abrasions, no fluctuance, no induration Musculoskeletal: full muscle strength, no muscle tenderness, normal joint ROM Neurologic: AAOx3, sensation intact bilaterally, No weakness, No numbness Psychiatric: interacting appropriately, not anxious, not encephalopathic, thought process linear ICD10 Worksheet Patient Problems: Problems Problem Status Onset Subdural effusion Acute CAD - Coronary arteriosclerosis Active Sick sinus syndrome Active Knee contusion Acute Sternal fracture Acute
--- NOTE | 2018-01-26 16:26 | ASMTCMCOM ---
CM Note CM Note Notes: Spoke with [employer] and Medicare does not pay for PT safety evaluation of the home. Patient would have to qualify for Physical therapy in the home, a minimum of 5 visits. Patient wants to return to his own physical therapist on an outpatient basis and he does not want the expense of the home safety evaluation as he has had these done in the past and feels he knows most of what they would recommend. D/C plan is most likely independent with outpatient PT follow up. CM will follow. Date Signed: 01/26/2018 04:25 PM Electronically Signed By:Anh Chairez LCSW
[2018-01-26] MEDS: TAMSULOSIN HCL 0.4 MG CAP PO SCH (17:44)
[2018-01-26] MEDS: PRAVASTATIN SODIUM 10 MG TAB PO SCH (17:44)
[2018-01-27] MEDS: OMEGA-3 FATTY ACIDS 1,000 MG CAP PO SCH (07:29)
[2018-01-27] MEDS: PANTOPRAZOLE SODIUM 40 MG TAB PO SCH (07:29)
[2018-01-27] MEDS: DRONEDARONE HCL 400 MG TAB PO SCH (07:29)
[2018-01-27] MEDS: DILTIAZEM XR 240 MG CAP PO SCH (07:29)
[2018-01-27] MEDS: CHOLECALCIFEROL VIT D3 1,000 UNITS TAB PO SCH (07:29)
[2018-01-27] MEDS ORDERED: LIDOCAINE 1% 300 MG/30 ML SDV ONE (10:09)
[2018-01-27] MEDS ORDERED: IOPAMIDOL (ISOVUE-M 300) 15 ML VIAL ONE (10:09)
--- NOTE | 2018-01-27 11:26 | NEUSURGPN ---
Assessment/Plan: 82 yo male who takes Eliquis. Fell down and developed right leg weakness intermittently. CTH shows left sided subdural hygroma which is stable on repeat CTH yesterday, continued issues with RLE Plan: Hold eliquis CT Myelogram this AM, if no concerning findings OK for DC and will f/u on Monday at our clinic after repeat CTH on Monday as Outpt. Discussed with Dr. Zavaleta Subjective: continues to have issues with leg not holding his weight, doesn't feel weak or painful, just won't work properly. ready to go home otherwise. Objective: NAD AAOx4 up in chair Speech clear and fluent EOMI, PEARLA cnii-xii grossly intact no droop MAEx4, 5/5= SILT gait deferred - Physician Discussed Patient with DrOnofre: [facility] Neurosurgery Physical Exam - Vitals, I&O, Labs I and O 01/26/18 01/27/18 01/28/18 05:59 05:59 05:59 Intake Total 800 250 Output Total 750 400 Balance 50 -150 Weight 84.1 kg Intake: Oral (ml) 800 250 Output: Urine (ml) 750 400 Urinal 750 400 Other: Intake Quantity Yes Sufficient Number of Voids Toilet 2 3 Urinal 1 1 Number of Stools Urinal 1 Vital Signs Temp Pulse Resp BP Pulse Ox 36.6 C 63 14 102/58 L 94 01/27/18 07:26 01/27/18 07:26 01/27/18 07:26 01/27/18 07:26 01/27/18 07:26 Laboratory Results 01/25/18 05:07 01/25/18 05:07 ICD10 Worksheet Patient Problems: Problems Problem Status Onset Subdural effusion Acute CAD - Coronary arteriosclerosis Active Sick sinus syndrome Active Knee contusion Acute Sternal fracture Acute
--- NOTE | 2018-01-27 15:43 | HOSPPROG ---
Hospitalist Progress Note Assessment/Plan: 82yo M with atrial fibrillation recently taken off of apixaban due to falls, chronic left foot drop, recent fall on 01/18 who presented 01/24 with right leg instability found to have left subdural hygroma. Admitted for neurologic monitoring. This is my first encounter with patient. I have reviewed head imaging. Left subdural hygroma: Stable on CT this AM. Neurologically intact. Suspect precipitated by fall. - PT/OT cleared for home Recent fall with LOC: Likely mechanical in setting of chronic left foot drop, and right leg giving out. - Pacemaker interrogated - no arrhythmias Atrial fibrillation: A-paced rhythm. He has been off anticoagulation (apixaban) due to recent falls. - Hold apixaban - Continue diltiazem and dronedarone - RN alerted his high school music teacher, Dr Bradford, of admission. He is reportedly considering ISAÍAS closure in setting given the patient's high risk of long-term systemic anticoagulation HTN: Relatively controlled. Continue home meds HLD: Home statin. BPH: Home flomax. home today w neurosurgery and cardiology follow up Subjective: ct myelogram w narrowing at l45 but no spinal cord impingement. anxious for dc Objective: Vital Signs Temp Pulse Resp BP Pulse Ox 36.6 C 63 14 102/58 L 94 01/27/18 07:26 01/27/18 07:26 01/27/18 07:26 01/27/18 07:26 01/27/18 07:26 Laboratory Results 01/25/18 05:07 01/25/18 05:07 01/26/18 01/27/18 01/28/18 05:59 05:59 05:59 Intake Total 800 250 Output Total 750 400 Balance 50 -150 PT 13.6 SEC (12.0-15.0) 01/24/18 15:22 INR 1.02 (0.83-1.16) 01/24/18 15:22 - Physical Exam Constitutional: no apparent distress, appears nourished Eyes: PERRL, anicteric sclera Ears, Nose, Mouth, Throat: moist mucous membranes, hearing normal Cardiovascular: regular rate and rhythym, no murmur, rub, or gallop Respiratory: no respiratory distress, no rales or rhonchi Gastrointestinal: normoactive bowel sounds, soft, non-tender abdomen Genitourinary: no bladder fullness, No chavez in urethra Skin: warm, normal color Musculoskeletal: full muscle strength, no muscle tenderness Neurologic: AAOx3 ICD10 Worksheet Patient Problems: Problems Problem Status Onset Subdural effusion Acute CAD - Coronary arteriosclerosis Active Sick sinus syndrome Active Knee contusion Acute Sternal fracture Acute
--- NOTE | 2018-01-27 15:49 | ASMTLACE ---
LACE Length of stay for Answers: 2 days current admission Acuity / Level of Answers: Yes Care: Did the patient have an inpatient admission? Comorbidities - select Answers: Coronary Artery Disease all that apply Opioid dependence / Chronic pain Other Notes: AFib; GERD # of Emergency department Answers: 1-2 visits in the last 6 months Score: 13 Date Signed: 01/27/2018 03:48 PM Electronically Signed By:Dottie Roland
[2018-01-27 16:02] VITALS: BP 138/85
--- NOTE | 2018-01-27 16:58 | GDS ---
DISCHARGE DIAGNOSES: 1. Right subdural hygroma, stable on CT, managed conservatively. 2. Falls with recent cessation of anticoagulation. 3. Benign prostatic hypertrophy. 4. Hypertension. 5. Atrial fibrillation. 6. History of lumbar spine surgery with narrowing, but not spinal cord impingement at L4-L5 level. HOSPITAL COURSE: Please see admission History and Physical by Dr. Diane Rea. The patient presented with a recent fall. He had been seen, and he had a CT showing a small subdural effusion. Upon presentation here, he had an increasing subdural effusion compared with a week prior with associated 6.5 mm [id number] shift. This was followed while here, and he was also seen by [facility] and followed. Head CT done yesterday showed stable subdural hygroma of the left frontal and parietal lobes with 4-5 mm [id number] shift. He had a CT myelogram showing narrowing of the c anal on the L4-L5 region. This was followed by Neurosurgery. They ordered the test and felt that it does not explain his episodes of right leg buckling. He was seen by Physical and Occupational [facility]ra sada, who felt the patient was safe for home. He is discharged home today off anticoagulation, but otherwise unchanged medication regimen. He has followup with Dr. Luna in the coming week. /[id number]/MODL
== END 2018-01-27 16:56 | disposition home or self-care (01) | DRG 93 ==
LOC: F2N 17:28
PROVIDERS: ADMIT Internal Medicine; ATTEND Internal Medicine
PROC: B02B1ZZ Computerized Tomography (CT Scan) of Spinal Cord using Low Osmolar Contrast (ICD-10-PCS; principal; 2018-01-27)
DX: G96.0 Cerebrospinal fluid leak (principal); W19.XXXA Unspecified fall, initial encounter; N40.0 Benign prostatic hyperplasia without lower urinary tract symptoms; I10 Essential (primary) hypertension; I48.0 Paroxysmal atrial fibrillation; M25.30 Other instability, unspecified joint; E78.5 Hyperlipidemia, unspecified
CPT/HCPCS: 92507-GN; 92523-GN; 97116-GP; 97161-GP; 97166-GO; 97535-GO; G8978-GP-CI; G8979-GP-CI; G8980-GP-CI; G8987-GO-CI; G8988-GO-CI; G8989-GO-CI; G9165-GN-CJ; G9166-GN-CJ; G9167-GN-CH; Q9967

== ENCOUNTER → 2018-01-29 | Outpatient (CLI) | payer OTHER | LOC: FIMAGING 11:25 | PROVIDERS: ATTEND Physician Assistant Surgical | DX: S06.5X9A Traumatic subdural hemorrhage with loss of consciousness of unspecified duration, initial encounter (principal) ==

== ENCOUNTER → 2018-02-17 | Outpatient (CLI) | payer OTHER | LOC: FIMAGING 09:54 | PROVIDERS: ATTEND Physician Assistant Surgical | DX: I62.03 Nontraumatic chronic subdural hemorrhage (principal) ==

== ENCOUNTER → 2018-03-06 | Outpatient (CLI) | payer OTHER | LOC: FIMAGING 11:00 | PROVIDERS: ATTEND Physician Assistant Surgical | DX: I62.03 Nontraumatic chronic subdural hemorrhage (principal); M43.16 Spondylolisthesis, lumbar region; M51.26 Other intervertebral disc displacement, lumbar region ==

== ENCOUNTER 2018-05-23 08:10 | Day surgery (SDC) | payer OTHER ==
[2018-05-23] MEDS ORDERED: NS 500 ML IV ONE (08:17)
[2018-05-23] MEDS ORDERED: MIDAZOLAM 2 MG/2 ML VIAL IVP ONE (08:17)
[2018-05-23] MEDS ORDERED: fentaNYL 100 MCG/2 ML INJ IVP ONE (08:17)
[2018-05-23] MEDS ORDERED: BENZOCAINE UNIT DOSE SPRAY HURRICAINE MM ONE (08:17)
--- NOTE | 2018-05-23 13:18 | PDANEPAE ---
ANE History of Present Illness pt here for VANDANA ANE Past Medical History - Cardiovascular History Hx Hypertension: No Hx Arrhythmias: Yes Hx Coronary Artery / Peripheral Vascular Disease: No Hx CHF / Valvular Disease: No Cardiovascular History Comment: sss, 2nd degree heart block, hx. pacemaker 2010. denies chest pain. A-fib - Pulmonary History Hx COPD: No Hx Asthma/Reactive Airway Disease: No Hx Recent Upper Respiratory Infection: No Hx Oxygen in Use at Home: No Hx Sleep Apnea: Yes Pulmonary History Comment: wears mouth appliance at night for minor sleep apnea. denies sob up 2 flights - Neurologic History Hx Cerebrovascular Accident: No Hx Seizures: No Hx Dementia: No Neurologic History Comment: tingling to feet, nerve related. l foot drop r/t lumbar impingment. lumbar herniated disc hx. migraines- 2/yr. - Endocrine History Hx Diabetes: No - Renal History Hx Renal Disorders: No Renal History Comment: frequency- takes flomax - Liver History Hx Hepatic Disorders: No - Neurological & Psychiatric Hx Hx Neurological and Psychiatric Disorders: No - Cancer History Hx Cancer: No - Congenital Disorder History Hx Congenital Disorders: No - GI History Hx Gastrointestinal Disorders: Yes Gastrointestinal History Comment: GERD - on meds - Other Health History Other Health History: fell on ice 04/2013- dislocated little finger. bruises easily. arthritis. - Chronic Pain History Chronic Pain: Yes (arthritis) - Surgical History Prior Surgeries: 03/2013- l knee arthroplasty. spondiolithiasis l4-5. l3-5 discectomy. rotator cuff surgery -l and r. tonsillectomy ANE Review of Systems Review of Systems: - Exercise capacity Exercise capacity: >=4 METS ANE Patient History - Allergies Allergies/Adverse Reactions: codeine [Codeine] Allergy (Unknown, Verified 01/18/18 14:42) kidney problems hydrocodone Allergy (Verified 01/18/18 14:42) stroke symptoms oxycodone [Oxycodone] Allergy (Verified 01/18/18 14:42) stroke symptoms - Home Medications Home Medications: Lovastatin 10 mg PO HS 11/07/11 [Last Taken 01/23/18] [place]-3 Fatty Acids [Fish Oil 1000 mg (*)] 1,000 mg PO BID 11/07/11 [Last Taken 05/23/18] Diltiazem HCl [Diltiazem 24Hr Cd] 240 mg PO DAILY 10/15/13 [Last Taken 05/23/18] Dronedarone HCl [Multaq 400 mg (*)] 400 mg PO BIDMEAL 02/26/13 [Last Taken 05/23] Tamsulosin HCl [Flomax 0.4 MG (*)] 0.4 mg PO DAILY@1830 06/19/13 [Last Taken 04/01] ISOMETHEPT/ACETAMINOP/DICHLPHN [MIDRIN CAPSULE] 1 each PO DAILY PRN 11/03/15 [ Last Taken 2 Months Ago ~11/23/17] Omeprazole 40 mg PO DAILY 11/03/15 [Last Taken 05/23/18] - NPO status NPO Status: no food or drink >8 hours - Anes Hx Anes Hx: no prior problems - Smoking Hx Smoking Status: Former smoker - Alcohol Use Alcohol Use: Occasionally - Family Anes Hx Family Anes Hx: none Family Hx Anesthesia Complications: none ANE Labs/Vital Signs - Vital Signs Height: 195.58 cm Weight: 83.915 kg ANE Physical Exam - Airway Neck exam: FROM Mallampati Score: Class 2 Mouth exam: normal dental/mouth exam - Pulmonary Pulmonary: no respiratory distress, clear to auscultation - Cardiovascular Cardiovascular: regular rate and rhythym, no murmur, rub, or gallop - ASA Status ASA Status: III ANE Anesthesia Plan Anesthesia Plan: GA with mask
[2018-05-23] MEDS ORDERED: PROPOFOL/EMULSION 500 MG/50 ML BOTTLE IV ONE (13:23)
--- NOTE | 2018-05-23 13:29 | PDHPUP ---
History & Physical Update H&P update statement: This history and physical update is based on an assessment of the patient which was completed after admission or registration (within 24 hours), but prior to the surgery/procedure. H&P update: H&P reviewed & patient examined, no change in patient's condition since H&P completed
--- NOTE | 2018-05-23 17:31 | ECHO ---
[email or web address] [address] [address] Main: [phone] Fax: Transesophageal Echocardiography Name: CHUCK GARNICA MR#: [id number] Study Date: 05/23/2018 Study Time: 01:34 PM Date of : 1935 Age: 83 year(s) Height: ( ) Weight: ( ) BSA: Gender: Male Examination: VANDANA Indication: Pre Watchman Image Quality: Adequate Contrast: Requested by: Lissa Alejandro Heart Rate: Rhythm: BP: / Procedure Staff Hand Tier: Sydnee Fu RDCS Reading Physician: Lissa Alejandro MD Requesting Provider: VANDANA Exam Details Conclusions: Normal size left ventricle. Normal global systolic LV function. No thrombus in left appendage. At 0 degrees, the left atrial appendage measures 1.01 cm by 1.12 cm. At 45 degrees, the left atrial appendage measures 1.11 cm by 1.55 cm. At 90 degrees, the left atrial appendage measures 1.78 cm by 2.50 cm. At 135 degrees, the left atrial appendage measures 1.92 cm by 2.66 cm. The left atrial appendage is a unilobular windsock. The patient is hydrated at the time of the measurements. Mild mitral valve regurgitation is present. Mild plaque in the descending aorta. Measurements: Chambers Valvular Assessment AV/MV Valvular Assessment TV/PV Normal Normal Normal Name Value Range Name Value Range Name Value Range Additional Measurements: Findings: Left Ventricle: Normal size left ventricle. Normal global systolic LV function. Right Ventricle: Normal size right ventricle. Normal RV function. Left Atrium: Patient: CHUCK GARNICA Study Date: 05/23/2018 Page 1 of 2 01:34 PM An agitated saline study was performed and was positive for intracardiac shunting. Left Atrial Appendage: No thrombus in left appendage. At 0 degrees, the left atrial appendage measures 1.01 cm by 1.12 cm. At 45 degrees, the left atrial appendage measures 1.11 cm by 1.55 cm. At 90 degrees, the left atrial appendage measures 1.78 cm by 2.50 cm. At 135 degrees, the left atrial appendage measures 1.92 cm by 2.66 cm. The left atrial appendage is a unilobular windsock. The patient is hydrated at the time of the measurements. Mitral Valve: The mitral valve is normal in appearance and function. Mild mitral valve regurgitation is present. No mitral stenosis is present. Possible trivial prolapse. Aortic Valve: The aortic valve is tri-leaflet. Trivial aortic valve regurgitation. No aortic valve stenosis is present. Tricuspid Valve: The tricuspid valve is normal in appearance and function. Pulmonic Valve: The pulmonic valve is normal in appearance and function. Aorta: Mild plaque in the descending aorta. l1n (No Signature Object) Patient: CHUCK GARNICA Study Date: 05/23/2018 Page 2 of 2 01:34 PM [id number]
== END 2018-05-23 15:45 | disposition home or self-care (01) ==
LOC: FCATH 08:10
PROVIDERS: ATTEND Internal Medicine Cardiovascular Disease
PROC: B245ZZ4 Ultrasonography of Left Heart, Transesophageal (ICD-10-PCS; principal; 2018-05-23)
DX: I48.91 Unspecified atrial fibrillation (principal); Z91.81 History of falling; E78.5 Hyperlipidemia, unspecified; Z95.0 Presence of cardiac pacemaker
CPT/HCPCS: J2704

== ENCOUNTER → 2018-06-04 | Outpatient (CLI) | payer OTHER | LOC: FIMAGING 09:05 | PROVIDERS: ATTEND Physician Assistant Surgical | DX: Z09 Encounter for follow-up examination after completed treatment for conditions other than malignant neoplasm (principal); Z86.79 Personal history of other diseases of the circulatory system ==

== ENCOUNTER 2018-06-12 06:11 | Inpatient (IN) | payer OTHER ==
[2018-06-12] MEDS ORDERED: NS 1,000 ML IV ONE (06:13)
[2018-06-12] MEDS ORDERED: LIDOCAINE 1% 300 MG/30 ML SDV ONE (07:00)
[2018-06-12] MEDS ORDERED: ceFAZolin 2 GM/DEXTROSE 100 ML IV ONE (07:00)
[2018-06-12] MEDS ORDERED: IOPAMIDOL (ISOVUE-300) 150 ML BTL ONE (07:00)
--- NOTE | 2018-06-12 07:12 | PDANEPAE ---
ANE History of Present Illness 83 yo for watchman ANE Past Medical History - Cardiovascular History Hx Hypertension: No Hx Arrhythmias: Yes Hx Coronary Artery / Peripheral Vascular Disease: Yes Hx CHF / Valvular Disease: No Cardiovascular History Comment: sss, 2nd degree heart block, hx. pacemaker 2010. denies chest pain. A-fib - Pulmonary History Hx COPD: No Hx Asthma/Reactive Airway Disease: No Hx Recent Upper Respiratory Infection: No Hx Oxygen in Use at Home: No Hx Sleep Apnea: Yes Pulmonary History Comment: wears mouth appliance at night for minor sleep apnea. denies sob up 2 flights - Neurologic History Hx Cerebrovascular Accident: No Hx Seizures: No Hx Dementia: No Neurologic History Comment: tingling to feet, nerve related. l foot drop r/t lumbar impingment. lumbar herniated disc hx. migraines- 2/yr. - Endocrine History Hx Diabetes: No - Renal History Hx Renal Disorders: No Renal History Comment: frequency- takes flomax - Liver History Hx Hepatic Disorders: No - Neurological & Psychiatric Hx Hx Neurological and Psychiatric Disorders: No - Cancer History Hx Cancer: No - Congenital Disorder History Hx Congenital Disorders: No - GI History Hx Gastrointestinal Disorders: Yes Gastrointestinal History Comment: GERD - on meds - Other Health History Other Health History: fell on ice 04/2013- dislocated little finger. bruises easily. arthritis. - Chronic Pain History Chronic Pain: Yes (arthritis) - Surgical History Prior Surgeries: 03/2013- l knee arthroplasty. spondiolithiasis l4-5. l3-5 discectomy. rotator cuff surgery -l and r. tonsillectomy ANE Review of Systems Review of Systems: - Exercise capacity METS (RN): 3 METS ANE Patient History - Allergies Allergies/Adverse Reactions: codeine [Codeine] Allergy (Unknown, Verified 01/18/18 14:42) kidney problems hydrocodone Allergy (Verified 01/18/18 14:42) stroke symptoms oxycodone [Oxycodone] Allergy (Verified 01/18/18 14:42) stroke symptoms - Home Medications Home medications: home medication list seen and reviewed Home Medications: Lovastatin 10 mg PO DAILY18 11/07/11 [Last Taken 01/23/18] [place]-3 Fatty Acids [Fish Oil 1000 mg (*)] 1,000 mg PO BID 11/07/11 [Last Taken 05/23/18] Diltiazem HCl [Diltiazem 24Hr Cd] 240 mg PO DAILY 02/26/13 [Last Taken 05/23/18] Dronedarone HCl [Multaq 400 mg (*)] 400 mg PO BIDMEAL 02/26/13 [Last Taken 05/23] Tamsulosin HCl [Flomax 0.4 MG (*)] 0.4 mg PO DAILY 06/19/13 [Last Taken 01/23/18 ] Omeprazole 40 mg PO DAILY 11/03/15 [Last Taken 05/23/18] Acetaminophen [Tylenol 325mg (*)] 325 mg PO DAILY PRN 06/06/18 [Last Taken Unknown] Ferrous Sulfate [Ferrous Sulf 325 MG (*)] 325 mg PO Q2D 06/06/18 [Last Taken Unknown] - Smoking Hx Smoking Status: Former smoker - Family Anes Hx Family Hx Anesthesia Complications: none ANE Labs/Vital Signs - Vital Signs Height: 6 ft 5.17 in Weight: 83.9 kg ANE Physical Exam - Airway Neck exam: FROM Mallampati Score: Class 2 Mouth exam: normal dental/mouth exam - Pulmonary Pulmonary: no respiratory distress - Cardiovascular Cardiovascular: regular rate and rhythym - ASA Status ASA Status: III ANE Anesthesia Plan Anesthesia Plan: general endotracheal anesthesia
--- NOTE | 2018-06-12 07:16 | PDPROPOC ---
Sedation Plan of Care Sedation Plan of Care: mental status noted, patient educated of risks, benefits , alternatives, patient can tolerate sedation ASA Classification: ASA 3 Planned drugs: other Mallampati Score: Class 3 Mallampati Reference Image: Patient passed 3-3-2 rule?: Yes
[2018-06-12] MEDS ORDERED: fentaNYL 100 MCG/2 ML INJ ONE (07:22)
[2018-06-12] MEDS ORDERED: REMIFENTANIL HCL 1 MG VIAL ONE (07:22)
[2018-06-12] MEDS ORDERED: PROPOFOL/EMULSION 500 MG/50 ML BOTTLE IV ONE (07:22)
[2018-06-12] MEDS ORDERED: ROCURONIUM 50 MG/5 ML VIAL ONE (07:24)
[2018-06-12] MEDS ORDERED: PROTAMINE SULFATE 50 MG/5 ML VIAL IVP ONE (08:33)
[2018-06-12] MEDS ORDERED: SUGAMMADEX SODIUM 200 MG/2 ML VIAL IVP ONE (08:37)
[2018-06-12] MEDS ORDERED: ONDANSETRON 4 MG/2 ML VIAL ONE (08:37)
[2018-06-12] MEDS ORDERED: NITROGLYCERIN 0.4 MG BTL SL PRN (09:02)
[2018-06-12] MEDS ORDERED: HYDROCODONE/APAP 5/325 TAB PO PRN (09:02)
[2018-06-12] MEDS ORDERED: ATROPINE SULFATE 1 MG/10 ML SYR IVP PRN (09:02)
[2018-06-12] MEDS ORDERED: ACETAMINOPHEN 325 MG TAB PO PRN (09:03)
[2018-06-12] MEDS ORDERED: NALOXONE HCL 0.4 MG/ML INJ IVP PRN (09:06)
--- NOTE | 2018-06-12 09:07 | POSTANESTH ---
Post Anesthetic Evaluation Cardiovascular Status: Normal, Stable Respiratory Status: Normal, Stable Level of Consciousness/Mental Status: Can Participate in Eval Pain Control: Adequate, Prn Tx Ordered Nausea/Vomiting Control: Adequate, Prn Tx Ordered Complications Possibly Related to Anesthesia: None Noted
--- NOTE | 2018-06-12 10:21 | CPIP ---
[f rep st] INVASIVE CARDIAC PROCEDURE DATE OF PROCEDURE: 06/12/2018 INDICATION FOR PROCEDURE: Atrial fibrillation, inability to tolerate long-term anticoagulation haroldo tomlin. CO-SURGEONS: Dr. Jaden Luo, Dr. Sonu Josue, Dr. Lissa Alejandro. PROCEDURE: 1. 6-Tajik sheath right common vein. 2. Transseptal access with a [place] catheter and wire under VANDANA guidance. 3. Placement of Watchman device, 21 mm via the transfemoral route in the left atrial appendage. HISTORY: Briefly, this is an 83-year-old male with history of subdural hematoma, frequent falls, par oxysmal atrial fibrillation, who has been consented for Watchman placement. DESCRIPTION OF PROCEDURE: After informed consent, the patient was brought to [facility] where the patient was electively intubated by Dr. Josue. Patient was administered 2 g Ancef judie or to the case. 6-Tajik sheath was placed in the right common vein. Patient was administered a tot al of 11,0000 heparin IV. Transeptal access with [place] catheter and wire. Left atrial pressure was measured to be approximate ly 10 mmHg. Pigtail catheter was placed into the left atrial appendage. This appeared to be a chick en wing type morphology. The sheath was then advanced across into the appendage after the successful transseptal access. The markers marked approximately up to 21 mm. At this time, the pigtail cathet er was removed. The 21 device was then advanced and deployed successfully. After deployment, there was no wanda-Watchman leak noted. The compression rates ranged from 15% to 36%. The patient underwen t a tug test, which showed no movement of the device. The patient underwent successful PASS criteria , and at this time, device was deployed successfully. After deployment, the sheath was pulled back a nd the right groin was closed with pursestring suture. Patient tolerated the procedure well with no complications. IMPRESSION: Successful placement of Watchman left atrial branch occluding device, 21 mm. PLAN: The patient will be admitted overnight to PCU. If clinically stable, discharge within 24 hour s. /[id number]/MODL
--- NOTE | 2018-06-12 10:59 | PDMN ---
Medical Necessity Medical necessity: [facility] cardiovascular sgy INPT only CPT 09176 - afib with inability to tolerate long-term anticoagulation tx. OP: successful placement of Watchman, L atrial branch occluding device
--- NOTE | 2018-06-12 11:48 | ECHO ---
[email or web address] [place] [id number] Main: [phone] Fax: Transesophageal Echocardiography Name: CHUCK GARNICA MR#: [id number] Study Date: 06/12/2018 Study Time: 07:40 AM Date of : 1935 Age: 83 year(s) Height: ( ) Weight: ( ) BSA: Gender: Male Examination: VANDANA Indication: Watchman Procedure Image Quality: Adequate Contrast: Requested by: Stiven Ruiz Heart Rate: Rhythm: BP: / Procedure Staff Ecologist: Sydnee Fu [facility] Reading Physician: Lissa Alejandro MD Requesting Provider: Stiven Ruiz VANDANA Exam Details Conclusions: Normal global systolic LV function. The ejection fraction is visually estimated to be 60 %. Normal size right ventricle. Normal RV function. Prior to device placement: the ISAÍAS measured 11.8 by 16.9 mm at 0 degrees. The ISAÍAS measured 14 by 18 mm at 45 degrees. The ISAÍAS measured 14 by 18 mm at 90 degrees. The ISAÍAS measured 8 by 12.2 at 135 degrees. After device placement, the device measured 15.7 mm with 25.2 % compression at 0 degrees. The device measured 13.4 mm with 10% compression at 45 degrees. The device measured 18 mm with 15% compression at 90 degrees. The device measured 16.8 mm with 20% compression at 135 degrees. The device appears well seated. No leak around the device. There appears to be a small pocket of fluid present near the ISAÍAS. The fluid was present prior to the procedure. Mild mitral valve regurgitation is present. No pericardial effusion. Successful deployment of 21 mm Watchman left atrial appendage closure device. Measurements: Chambers Valvular Assessment AV/MV Valvular Assessment TV/PV Normal Normal Normal Name Value Range Name Value Range Name Value Range Visual EF: 60 % Additional Measurements: Patient: CHUCK GARNICA Study Date: 06/12/2018 Page 1 of 2 07:40 AM Findings: Left Ventricle: Normal size left ventricle. Normal global systolic LV function. The ejection fraction is visually estimated to be 60 %. No regional wall motion abnormality. Right Ventricle: Normal size right ventricle. Normal RV function. Left Atrial Appendage: Prior to device placement: the ISAÍAS measured 11.8 by 16.9 mm at 0 degrees. The ISAÍAS measured 14 by 18 mm at 45 degrees. The ISAÍAS measured 14 by 18 mm at 90 degrees. The ISAÍAS measured 8 by 12.2 at 135 degrees. After device placement, the device measured 15.7 mm with 25.2 % compression at 0 degrees. The device measured 13.4 mm with 10% compression at 45 degrees. The device measured 18 mm with 15% compression at 90 degrees. The device measured 16.8 mm with 20% compression at 135 degrees. The device appears well seated. No leak around the device. There appears to be a small pocket of fluid present near the ISAÍAS. The fluid was present prior to the procedure. Mitral Valve: The mitral valve is normal in appearance and function. Mild mitral valve regurgitation is present. No mitral stenosis is present. Aortic Valve: The aortic valve is tri-leaflet. There is no significant aortic valve regurgitation. No aortic valve stenosis is present. Tricuspid Valve: The tricuspid valve appears normal. Pulmonic Valve: The pulmonic valve is normal in appearance. Mild pulmonic valve regurgitation is noted. Pericardium: No pericardial effusion. l1n (No Signature Object) Patient: CHUCK GARNICA Study Date: 06/12/2018 Page 2 of 2 07:40 AM [id number]
--- NOTE | 2018-06-12 16:39 | CPEKG ---
Test Reason : OPEN Blood Pressure : / mmHG Vent. Rate : 080 BPM Atrial Rate : 080 BPM P-R Int : 202 ms QRS Dur : 096 ms QT Int : 394 ms P-R-T Axes : 062 -48 013 degrees QTc Int : 455 ms Atrial-paced rhythm Left anterior fascicular block Confirmed by Modesto Black ([id number]) on 06/12/2018 4:39:34 PM Referred By: Stiven Ruiz Confirmed By:Modesto Black
[2018-06-12] MEDS ORDERED: PRAVASTATIN SODIUM 10 MG TAB PO SCH (18:00)
[2018-06-12] MEDS: DRONEDARONE HCL 400 MG TAB PO SCH (18:03)
[2018-06-12] MEDS: OMEGA-3 FATTY ACIDS 1,000 MG CAP PO SCH (20:26)
[2018-06-13 03:22] LABS: PLATELET COUNT 159 10^3/uL (150-400)
--- NOTE | 2018-06-13 07:02 | PDCARPN ---
Cardiology Progress Note Chief Complaint: CP Assessment/Plan: Assessment: s/p watchman brief CP overnight Plan: 06/13/18 07:00 check limited echo d/c suture in groin d/c home if echo normal trop elevation- minimal, most likely due to cardiac procedure/TS/placement of device start low dose coumadin Subjective: no CP Reviewed/Discussed With: multidisciplinary team Time Spent with Patient: greater than 25 minutes Time Spent with Patient: Greater than 25 minutes spent on this patients care, greater than 50% of time spent counseling, educating, and coordinating care regarding the above mentioned plan. Objective: Vital Signs (8 Hrs) Temp Pulse Resp BP Pulse Ox 06/13/18 02:30 36.5 C 81 12 138/79 H 96 06/12/18 23:18 36.7 C 82 14 125/71 H 92 Intake/Output (24 Hrs) 06/12/18 06/13/18 06/14/18 05:59 05:59 05:59 Intake Total 1100 Output Total 350 Balance 750 Intake: Oral (ml) 900 IV Intake (ml) 200 Output: Urine (ml) 350 Urinal 350 Other: Weight 83.9 kg Number of Voids Toilet 1 Result Diagrams: 06/13/18 03:10 06/13/18 03:10 Cardiac Labs: Cardiac Lab Results (72 Hrs) 06/13/18 03:10 Troponin I 0.085 H - Physical Exam Constitutional: no apparent distress Eyes: PERRL Ears, Nose, Mouth, Throat: moist mucous membranes Cardiovascular: regular rate and rhythm Peripheral Pulses: 1+: femoral (R), femoral (L) Respiratory: clear to auscultate bilat Gastrointestinal: normoactive bowel sounds Genitourinary: no suprapubic tenderness Skin: no rashes Musculoskeletal: no muscular tenderness Neurologic: AAOx3 ICD10 Worksheet Patient Problems: Problems Problem Status Onset CAD - Coronary arteriosclerosis Active Sick sinus syndrome Active Knee contusion Acute Sternal fracture Acute Subdural effusion Acute
--- NOTE | 2018-06-13 07:16 | ECHO ---
[email or web address] [address] [address] Main: [phone] Fax: Transthoracic Echocardiogram Name: CHUCK GARNICA MR#: [id number] Study Date: 06/13/2018 Study Time: 03:23 AM Date of : 1935 Age: 83 year(s) Height: 195.6 cm (77 in.) Weight: 83.46 kg (184 lb.) BSA: 2.16 m2 Gender: Male Examination: Echo Indication: acute chest pain post watchman Image Quality: Adequate Contrast: Requested by: Stiven Ruiz BP: / Heart Rate: Rhythm: Indication: acute chest pain post watchman Procedure Staff Data Support Specialist: Sydnee Fu RDCS Reading Physician: Stiven Ruiz MD Requesting Provider: Conclusions: The ejection fraction is visually estimated to be 55 %. There is a pacemaker lead noted in the right ventricle. Moderate mitral valve regurgitation is present. Mild aortic valve regurgitation is present. Mild tricuspid regurgitation is present. Right ventricular systolic pressure measures 33mmHg. No pericardial effusion. Measurements: Chambers Valvular Assessment AV/MV Valvular Assessment TV/PV Normal Normal Normal Name Value Range Name Value Range Name Value Range Visual EF: 55 % AV Vmax: 1.15 m/s (1 m/s-1.7 TR Vmax: 2.64 mm/s ( - ) m/s) TR PGmax: 28 mmHg ( - ) AV maxP mmHg ( - ) syst. PAP: 33 mmHg ( - ) AV meanP mmHg ( - ) PV Vmax: 0.98 m/s (0.6 m/s-0.9 MV E Vmax: 1.15 m/s ( - ) m/s) MV PHT: 0.046 s ( - ) PV PGmax: 4 mmHg ( - ) MVA (PHT): 4.8 s ( - ) Continued Measurements: Chambers Valvular Assessment AV/MV Valvular Assessment TV/PV Name Value Name Value Name Value LADs Lon.7 cm MV DecTime: 158 m/s CVP (est.): 5 mmHg LA Area: 21.4 cm2 MR ERO: 0.400 cm2 MR PISA radius: 10 mm MR Reg. Volume: 88 ml Patient: CHUCK AMITY Study Date: 06/13/2018 Page 1 of 2 03:23 AM Findings: Left Ventricle: Normal size left ventricle. Normal global systolic LV function. The ejection fraction is visually estimated to be 55 %. No regional wall motion abnormality. Right Ventricle: Normal size right ventricle. Normal RV function. There is a pacemaker lead noted in the right ventricle. Left Atrium: The left atrium is normal in size. Right Atrium: The right atrium is normal in size. Mitral Valve: The mitral valve is normal in appearance and function. Moderate mitral valve regurgitation is present. No mitral stenosis is present. Aortic Valve: The aortic valve is normal in appearance and function. Mild aortic valve regurgitation is present. No aortic valve stenosis is present. Tricuspid Valve: The tricuspid valve is normal in appearance and function. Mild tricuspid regurgitation is present. The pulmonary artery pressure is normal. Right ventricular systolic pressure measures 33mmHg. Pulmonic Valve: The pulmonic valve is normal in appearance and function. Aorta: The aorta is normal. Pericardium: No pericardial effusion. (No Signature Object) Patient: CHUCK AMITY Study Date: 06/13/2018 Page 2 of 2 03:23 AM [id number]
[2018-06-13 07:49] VITALS: BP 125/75
--- NOTE | 2018-06-13 08:20 | GDS ---
[f rep st] DISCHARGE SUMMARY DISCHARGE DIAGNOSIS: Watchman placement. HOSPITAL COURSE: Briefly, this is an 83-year-old male with history of subdural hematoma, multiple fa lls, inability to tolerate long-term anticoagulant therapy, and atrial fibrillation who underwent suc cessful Watchman placement with a 21 mm device on 06/12/2018. Postprocedure, the patient actually wa s doing quite well. He did have a brief episode of chest pain at 3:00 in the morning, and a stat ech o was performed which showed normal ventricular function with no pericardial effusion. The patient d id have a mild bump in troponin from 0.08, but given his recent cardiac manipulation of a transseptal crossing and placement of device in the left atrial appendage, this is not unlikely to happen. The patient is currently completely chest pain free and has been ambulating the halls without problems. His groins are soft. His laboratory values otherwise are stable with an improved creatinine. He sona l be discharged home this morning with his home medications including Coumadin 1 mg p.o. daily and fo llow up in the office next week. /[id number]/MODL
[2018-06-13] MEDS ORDERED: PANTOPRAZOLE SODIUM 40 MG TAB PO SCH (09:00)
[2018-06-13] MEDS ORDERED: TAMSULOSIN HCL 0.4 MG CAP PO SCH (09:00)
[2018-06-13] MEDS ORDERED: DILTIAZEM XR 240 MG CAP PO SCH (09:00)
[2018-06-13] MEDS ORDERED: CHOLECALCIFEROL VIT D3 1,000 UNITS TAB PO SCH (09:00)
[2018-06-13] MEDS: DRONEDARONE HCL 400 MG TAB PO SCH (09:22)
[2018-06-13] MEDS: OMEGA-3 FATTY ACIDS 1,000 MG CAP PO SCH (09:22)
[2018-06-14] MEDS ORDERED: FERROUS SULFATE 325 MG TAB PO SCH (09:00)
--- NOTE | 2018-06-14 09:06 | CPEKG ---
Test Reason : OPEN Blood Pressure : / mmHG Vent. Rate : 080 BPM Atrial Rate : 080 BPM P-R Int : 050 ms QRS Dur : 190 ms QT Int : 493 ms P-R-T Axes : 020 -53 107 degrees QTc Int : 569 ms Atrial-ventricular dual-paced rhythm Confirmed by Modesto Black ([id number]) on 06/14/2018 9:06:31 AM Referred By: Stiven Ruiz Confirmed By:Modesto Black
== END 2018-06-13 11:20 | disposition home or self-care (01) | DRG 274 ==
LOC: FCATH 06:11 → F2W 09:02
PROVIDERS: ADMIT Internal Medicine Cardiovascular Disease; ATTEND Internal Medicine Cardiovascular Disease
PROC: 02L73DK Occlusion of Left Atrial Appendage with Intraluminal Device, Percutaneous Approach (ICD-10-PCS; principal; 2018-06-12)
DX: I48.0 Paroxysmal atrial fibrillation (principal); Z00.6 Encounter for examination for normal comparison and control in clinical research program; E78.5 Hyperlipidemia, unspecified; I49.5 Sick sinus syndrome; Z95.0 Presence of cardiac pacemaker; Z91.81 History of falling
CPT/HCPCS: C1769; C1893; J0690; J1644; J2405; J2704; J2720; J3010; Q9967

== ENCOUNTER 2018-07-30 11:52 | Day surgery (SDC) | payer OTHER ==
[2018-07-30] MEDS ORDERED: fentaNYL 100 MCG/2 ML INJ IVP ONE (11:54)
[2018-07-30] MEDS ORDERED: MIDAZOLAM 2 MG/2 ML VIAL IVP ONE (11:54)
[2018-07-30] MEDS ORDERED: BENZOCAINE UNIT DOSE SPRAY HURRICAINE MM ONE (11:54)
[2018-07-30] MEDS ORDERED: NS 500 ML IV ONE (11:54)
[2018-07-30] MEDS ORDERED: PROPOFOL 200 MG/20 ML VIAL ONE ×2 (13:24)
[2018-07-30] MEDS ORDERED: LIDOCAINE 2% 2 ML INJ ONE (13:24)
--- NOTE | 2018-07-30 13:35 | PDANEPAE ---
ANE History of Present Illness susana ANE Past Medical History - Cardiovascular History Hx Hypertension: No Hx Arrhythmias: Yes Hx Chest Pain: No Hx Coronary Artery / Peripheral Vascular Disease: Yes Hx CHF / Valvular Disease: No Hx Palpitations: No Cardiovascular History Comment: sss, 2nd degree heart block, hx. pacemaker 2010. denies chest pain. A-fib - Pulmonary History Hx COPD: No Hx Asthma/Reactive Airway Disease: No Hx Recent Upper Respiratory Infection: No Hx Oxygen in Use at Home: No Hx Sleep Apnea: Yes Pulmonary History Comment: wears mouth appliance at night for minor sleep apnea. denies sob up 2 flights - Neurologic History Hx Cerebrovascular Accident: No Hx Seizures: No Hx Dementia: No Neurologic History Comment: tingling to feet, nerve related. l foot drop r/t lumbar impingment. lumbar herniated disc hx. migraines- 2/yr. - Endocrine History Hx Diabetes: No Hypothyroid: No Hyperthyroid: No Obesity: no - Renal History Hx Renal Disorders: No Renal History Comment: frequency- takes flomax - Liver History Hx Hepatic Disorders: No - Neurological & Psychiatric Hx Hx Neurological and Psychiatric Disorders: No - Cancer History Hx Cancer: No - Congenital Disorder History Hx Congenital Disorders: No - GI History GERD: mild Hx Gastrointestinal Disorders: Yes Gastrointestinal History Comment: GERD - on meds - Other Health History Other Health History: fell on ice 04/2013- dislocated little finger. bruises easily. arthritis. - Chronic Pain History Chronic Pain: Yes (arthritis) - Surgical History Prior Surgeries: 03/2013- l knee arthroplasty. spondiolithiasis l4-5. l3-5 discectomy. rotator cuff surgery -l and r. tonsillectomy ANE Review of Systems Review of Systems: - Exercise capacity Exercise capacity: >=4 METS ANE Patient History - Allergies Allergies/Adverse Reactions: codeine [Codeine] Allergy (Unknown, Verified 01/18/18 14:42) kidney problems hydrocodone Allergy (Verified 01/18/18 14:42) stroke symptoms oxycodone [Oxycodone] Allergy (Verified 01/18/18 14:42) stroke symptoms - Home Medications Home Medications: Lovastatin 10 mg PO DAILY18 11/07/11 [Last Taken 01/23/18] [place]-3 Fatty Acids [Fish Oil 1000 mg (*)] 1,000 mg PO BID 11/07/11 [Last Taken 07/30/18] Diltiazem HCl [Diltiazem 24Hr Cd] 240 mg PO DAILY 02/26/13 [Last Taken 07/30/18] Dronedarone HCl [Multaq 400 mg (*)] 400 mg PO BIDMEAL 02/26/13 [Last Taken 05/23] Tamsulosin HCl [Flomax 0.4 MG (*)] 0.4 mg PO DAILY 06/19/13 [Last Taken 07/29/18 ] Omeprazole 40 mg PO DAILY 11/03/15 [Last Taken 05/23/18] Acetaminophen [Tylenol 325mg (*)] 325 mg PO DAILY PRN 06/06/18 [Last Taken Unknown] Ferrous Sulfate [Ferrous Sulf 325 MG (*)] 325 mg PO Q2D 06/06/18 [Last Taken ] - NPO status NPO Status: no food or drink >8 hours - Smoking Hx Smoking Status: Former smoker - Family Anes Hx Family Hx Anesthesia Complications: none ANE Labs/Vital Signs - Vital Signs Height: 193.04 cm Weight: 81.647 kg ANE Physical Exam - Airway Mallampati Score: Class 2 Mouth exam: normal dental/mouth exam - Pulmonary Pulmonary: no respiratory distress - Cardiovascular Cardiovascular: irregularly irregular - ASA Status ASA Status: III ANE Anesthesia Plan Anesthesia Plan: GA with mask
[2018-07-30] MEDS ORDERED: NALOXONE HCL 0.4 MG/ML INJ IVP PRN (14:04)
--- NOTE | 2018-07-31 12:14 | ECHO ---
[email or web address] [address] [address] Main: [phone] Echocardiography Examination Transesophageal Name: CHUCK GARNICA MR#: [id number] Study Date: 07/30/2018 Study Time: 01:40 PM Date of : 1935 Age: 83 year(s) Height: ( ) Weight: ( ) BSA: Gender: Male Examination: VANDANA Contrast: Image Quality: Adequate Rhythm: Heart Rate: BP: / Indication: Post Watchman VANDANA Procedure Staff Referring Physician: Elder Counselor: Evy Up [facility] Reading Physician: Lissa Alejandro MD Requesting Provider: Ordering Physician: Lissa Alejandro MD Indication: Post Watchman VANDANA Acute complication: None Measurements Chambers Label Value Normal Value LVEF visual 65 % Conclusions Normal LV systolic function. Watchman device is well seated in the left atrial appendage. There was no thrombus. No wanda device leak. Mild aortic regurgitation No pericardial effusion. Findings Left Ventricle: The EF is visually estimated to be 65 %. Left Atrium: The Watchman device appears to be well seated in the ISAÍAS. No thrombus noted. No leak around the device is noted. There is a small pocket of fluid noted near the ISAÍAS which was documented on the VANDANA during the Watchman procedure on 06-12-18.. No mass is present in the left atrium. IAS: Patient: CHUCK GARNICA Study Date: 07/30/2018 Page 1 of 2 01:40 PM Left to right shunt across the interatrial septum consistent with transseptal puncture. Right Atrium: A line (catheter or pacing wire) is present in the right atrium. Mitral Valve: Mitral valve appears structurally normal. Mild mitral regurgitation. Aortic Valve: The aortic valve is structurally normal and trileaflet. Mild aortic regurgitation is present. Tricuspid Valve: Tricuspid valve is poorly visualized. Pericardium: No pericardial effusion. Exam Details Procedure Ordered: VANDANA Procedure Status: Routine study Image Quality: Adequate Consent: Risks, alternatives of procedure explained to patient, informed consent obtained Probe Insertion: Attending water filter cleaner Facility Location: Cardiac Echo 1 (No Signature Object) Patient: CHUCK GARNICA Study Date: 07/30/2018 Page 2 of 2 01:40 PM [id number]
== END 2018-07-30 15:15 | disposition home or self-care (01) ==
LOC: FCATH 11:52
PROVIDERS: ATTEND Internal Medicine Cardiovascular Disease
PROC: B245ZZ4 Ultrasonography of Left Heart, Transesophageal (ICD-10-PCS; principal; 2018-07-30)
DX: I48.91 Unspecified atrial fibrillation (principal); G47.30 Sleep apnea, unspecified; Z95.0 Presence of cardiac pacemaker; Z87.891 Personal history of nicotine dependence
CPT/HCPCS: J2704

== ENCOUNTER 2018-10-22 09:01 | Day surgery (SDC) | payer OTHER | END 2018-10-22 14:30 | disposition home or self-care (01) | LOC: FCATH 09:01 ==